=== PATIENT | male | born 1960 | race Caucasian/White ===

== ENCOUNTER 2019-01-20 11:26 | Inpatient (IN) ==
[~2019-01-20 11:26] MED LIST: *HR* Amiodarone 150 MG/3 ML VIAL IVPB ONE; *HR* Amiodarone Premix 360 MG/200 ML BAG IVC ONE; *HR* Norepinephrine 4 MG/4 ML VIAL IVC ONE; D5% in Water 250 ML IV BAG IV ONE
[2019-01-20] MEDS ORDERED: Amiodarone Premix 150 MG/100 ML BAG IVPB ONE (11:50)
[2019-01-20] MEDS ORDERED: 0.9 % Sodium Chloride 500 ML IVC ONE (11:58)
[2019-01-20] MEDS ORDERED: Isovue-370 500 ML BOTTLE IVP ONE (11:58)
[2019-01-20] MEDS ORDERED: Aspirin 81 MG TAB.CHEW PO ONE (11:58)
[2019-01-20] MEDS ORDERED: Amiodarone Premix 360 MG/200 ML BAG IVC ONE (11:59)
--- NOTE | 2019-01-20 12:16 | Emergency Department Note ---
Disposition Clinical Impression: V-tach Disposition: Admitted As Inpatient Condition: Fair Time of Disposition: 13:46 General Adult HPI - General Chief complaint: ED Chest Pain Stated complaint: CP Time Seen by Provider: 01/20/19 11:58 Source: patient Limitations: no limitations Nursing Notes Reviewed: Yes Vital Signs Reviewed: Yes - History of Present Illness HPI Narrative: Patient presenting to the emergency department with chest pain. Was directed added. Patient was found to be in V. tach. Monomorphic. Complaining of crushing chest pain. Does have a history of one stent placed and is on Eliquis for this. Patient reports shortness of breath associated with this. He denies any fevers or chills. Denies any cough or congestion. Denies any abdominal pain nausea vomiting. States that he is from out of town and is here for a reunion. No history of being in V. tach before. Pain Scale: 0 - Related Data Home Medications Medication Instructions Recorded Confirmed Apixaban [Eliquis] 5 mg PO BID 01/20/19 01/20/19 Esomeprazole Magnesium [Nexium] 40 mg PO BID 01/20/19 01/20/19 Exenatide Microspheres [Bydureon 2 mg SQ GU 01/20/19 01/20/19 Pen] Isosorbide MONOnitrate [Isosorbide 20 mg PO DAILY 01/20/19 01/20/19 Mononitrate] Lisinopril-HCTZ 10-12.5 [Prinzide 1 each PO DAILY 01/20/19 01/20/19 10-12.5] Metoprolol Succinate [Toprol Xl] 50 mg PO DAILY 01/20/19 01/20/19 Mometasone/Formoterol [Dulera 200 2 puff IH BID 01/20/19 01/20/19 Mcg/5 Mcg Inhaler] Oxycodone HCl/Acetaminophen 1 each PO TID 01/20/19 01/20/19 [Percocet 5-325 mg Tablet] Ranolazine [Ranexa] 1,000 mg PO BID 01/20/19 01/20/19 Simvastatin [Zocor] 20 mg PO HS 01/20/19 01/20/19 metFORMIN [Glucophage] 500 mg PO BIDWM 01/20/19 01/20/19 Allergies Allergy/AdvReac Type Severity Reaction Status Date / Time Penicillins AdvReac Rash Verified 01/20/19 12:10 All systems ED: reviewed and negative except as stated. Review of Systems: As Per HPI Constitutional: Denies: fever, chills Cardiovascular: Reports: chest pain Respiratory: Reports: dyspnea. Denies: cough Gastrointestinal: Denies: abdominal pain, nausea, vomiting, diarrhea Genitourinary: Denies: urgency, dysuria, frequency, hematuria Musculoskeletal: Denies: back pain Past Medical History - Past Medical History Attestation: Yes The following information was validated with the patient. Source: patient Medical history: Reports: COPD, diabetes, hypertension Psychiatric history: Reports: no psych history - Social History Smoking Status: Former smoker Smokeless Tobacco Status: No Alcohol use: Reports: none Drug use: Reports: none Physical Exam - General Limitations: no limitations General appearance: alert, in no apparent distress - Head Head exam: atraumatic, normocephalic, normal inspection - Eye Eye exam: Present: normal appearance, PERRL, EOMI - ENT ENT exam: normal exam, normal oropharynx, mucous membranes moist - Neck Neck exam: Present: normal inspection, full ROM, trachea midline - Chest Chest inspection: Present: normal inspection, symmetric chest wall rise - Respiratory Respiratory exam: Present: normal lung sounds bilaterally. Absent: respiratory distress, accessory muscle use - Cardiovascular Cardiovascular exam: Present: tachycardia, normal heart sounds - Abdominal Exam Abdominal exam: Present: soft, Non-Tender. Absent: tenderness, distention, gu arding, rebound, rigidity, organomegaly - Extremities Exam Extremities exam: Present: normal inspection, full ROM, normal capillary refill. Absent: tenderness, pedal edema - Neurological Exam Neurological exam: Present: alert, oriented X3 - Psychiatric Psychiatric exam: Present: normal affect, normal mood - Skin Skin exam: Present: warm, dry, intact, normal color Course Course Narrative: Patient and monomorphic V. tach. We did try 150 of amiodarone slow push with no resolution of this. Initially he was normotensive however his blood pressure did start to fall. Patient was sedated with 160 mg of propofol and cardioverted. He cardioverted successfully at 100 J. Patient was placed on a end-tidal CO2 monitor prior to the cardioversion. He did have an episode where his oxygen saturations decreased and his airway was open. We did assist his ventilations which quickly brought his oxygen saturation of 200%. Patient was easily aroused after the procedure. Stated in a normal sinus rhythm with no signs of acute ischemia. We did discuss this case with the water softener servicer on-call who is agreeable to admission at this time and states that he will possibly be cardiac catheterized tomorrow. After the cardioversion patient has no complaints currently. He is smiling and laughing. - Consultations Consultation #1: I spoke with Dr Donato rao interventional cardiology. He agrees with the plan that we have so far for amiodarone drip admission to the hospital. He states likely cardiac catheterization tomorrow. Time: 12:14 Consultation #2: Dr Castro accepted Pt in stable condition. Time: 12:16 Vital Signs Temperature 98.1 F 01/20/19 11:29 Pulse Rate 210 01/20/19 11:29 Respiratory Rate 22 01/20/19 11:29 Blood Pressure 134/76 01/20/19 11:29 O2 Sat by Pulse Oximetry 98 01/20/19 11:29 Temperature 98.1 F 01/20/19 11:29 Pulse Rate 58 01/20/19 13:25 Respiratory Rate 18 01/20/19 13:25 Blood Pressure 111/77 01/20/19 13:25 O2 Sat by Pulse Oximetry 98 01/20/19 13:25 Oxygen Delivery Oxygen Delivery Room Air Medical Decision Making - Medical Records Medical records reviewed: Yes I reviewed the patient's medical records. - Lab Data Lab results reviewed: Yes I reviewed the patient's lab results. Result diagrams: 01/20/19 11:42 01/20/19 11:42 Lab Results 01/20/19 01/20/19 01/20/19 Range/Units 11:42 11:42 11:42 WBC 8.7 (4.3-11.1) K/mcL RBC 5.14 (4.19-5.50) M/mcL Hgb 15.4 (12.9-16.9) g/dL Hct 46.1 (37.5-50.1) % MCV 89.7 (83.0-100.0) fL MCH 30.0 (28.0-33.3) pg MCHC 33.4 (31.6-35.5) g/dL RDW 13.1 (11.5-14.5) % Plt Count 214 (140-400) K/mcL MPV 10.7 (9.4-12.4) fL Immature Gran % 0.5 (0-4) % Seg Neutrophils % 70.5 % Lymphocytes % 19.8 % Monocytes % 7.0 % Eosinophils % 1.7 % Basophils % 0.5 % Neutrophils # 6.2 (1.6-8.9) K/mcL Lymphocytes # 1.7 (0.6-4.6) K/mcL Monocytes # 0.6 (0.0-1.3) K/mcL Eosinophils # 0.2 (0.0-0.6) K/mcL Basophils # 0.0 (0.0-0.2) K/mcL PT 11.7 (9.4-12.1) Seconds INR 1.0 APTT 35.3 (26.0-36.0) Seconds Sodium 135 L (136-145) mEq/L Potassium 5.1 (3.5-5.1) mEq/L Chloride 98 (98-107) mEq/L Carbon Dioxide 28 (23-29) mEq/L BUN 20 (8-23) mg/dL Creatinine 1.24 (0.70-1.30) mg/dL Est GFR ( Amer) > 60 (> 60) Est GFR (Non-Af Amer) 59 L (> 60) BUN/Creatinine Ratio 16 (6-26) Glucose 285 H (70-105) mg/dL Calculated Osmolality 293 (280-300) Calcium 8.9 (8.6-10.3) mg/dL Troponin I 0.07 H* (< 0.04) ng/mL B-Natriuretic Peptide (Less than 100) pg/mL 01/20/19 Range/Units 11:42 WBC (4.3-11.1) K/mcL RBC (4.19-5.50) M/mcL Hgb (12.9-16.9) g/dL Hct (37.5-50.1) % MCV (83.0-100.0) fL MCH (28.0-33.3) pg MCHC (31.6-35.5) g/dL RDW (11.5-14.5) % Plt Count (140-400) K/mcL MPV (9.4-12.4) fL Immature Gran % (0-4) % Seg Neutrophils % % Lymphocytes % % Monocytes % % Eosinophils % % Basophils % % Neutrophils # (1.6-8.9) K/mcL Lymphocytes # (0.6-4.6) K/mcL Monocytes # (0.0-1.3) K/mcL Eosinophils # (0.0-0.6) K/mcL Basophils # (0.0-0.2) K/mcL PT (9.4-12.1) Seconds INR APTT (26.0-36.0) Seconds Sodium (136-145) mEq/L Potassium (3.5-5.1) mEq/L Chloride (98-107) mEq/L Carbon Dioxide (23-29) mEq/L BUN (8-23) mg/dL Creatinine (0.70-1.30) mg/dL Est GFR ( Amer) (> 60) Est GFR (Non-Af Amer) (> 60) BUN/Creatinine Ratio (6-26) Glucose (70-105) mg/dL Calculated Osmolality (280-300) Calcium (8.6-10.3) mg/dL Troponin I (< 0.04) ng/mL B-Natriuretic Peptide 133 H (Less than 100) pg/mL - Radiology Data Radiology results reviewed: Yes I reviewed the patient's radiology results. Chest X-Ray 01/20/19 11:58 IMPRESSION: No acute process. D/ / Jabari Deshpande MD / Jabari Deshpande MD Interpreting Provider: Jabari Deshpande MD Chest CTA 01/20/19 11:59 IMPRESSION: No evidence of pulmonary embolism or acute pulmonary abnormality. D/ / Marc oA Hickman MD / Marco A Hickman MD Interpreting Provider: Marco A Hickman MD Critical Care Time Critical Care Time: Yes Total Critical Care Time: 35 Attestation: Critical care time was 35 minutes managing patient's V. tach. Attestation Statement - Attestation Attestation: Patient was seen with resident physician. I reviewed the history, physical, assessment and plan, and agree with the findings. I also personally evaluated this patient and had [id number] time with this patient. 58-year-old male presents to the emergency department with a chief complaint of chest pain. Patient says he has had chest pain since earlier today. Notes he is also been short of breath. Patient states he has had several long car trips recently. He has a history of cardiac disease with stent placement. He takes a blood thinner for that. Denies fevers or chills. Patient was ambulatory on arrival and provide a good history. Review of systems as above remainder negative. Physical exam vital signs Asians and V. tach heart rate of greater than 200. Temperatures normal blood pressure is normal. ENT unremarkable. Heart tachycardic regular rhythm. Lungs clear no wheezing or other abnormalities noted. Chest wall stable. Abdomen soft nontender. Extremities unremarkable no appreciable swelling. Neurologically intact moves all extremities no focal deficits. Skin no rashes. Psych normal. ED course. I with the patient being in the model more fit ventricular tachycardia, he was given a amiodarone while we were planning a cardioversion. 2 IVs were placed. Verbal consent was obtained. Pads were placed. Patient was consciously sedated using propofol. Patient was cardioverted with a biphasic 100 J dose. Cardioversion was successful. Patient returned to a normal sinus rhythm. There is no acute changes seen on that EKG. During recovery patient's became a little hypoxic. It was noted that his jaw was causing some mild obstruction we performed a jaw lift maneuver and bagged the patient slightly his pulse ox improved to 100% almost immediately. And he was observed until his mental status was improved and he had no residual airway issues. Initial troponin was negative. Other lab tests are largely unremarkable. We discussed with interventional cardiology recommended admission to hospitalist service with possible catheterization during his stay. We discussed the hospitalist agreed to accept the patient. ED procedure.I reviewed the patient's EKG as well as the resident physician interpretation and I agree with the findings. Please review resident note for detailed code information. I was present for the entirety of the patient's cardioversion and resuscitation. Critical care time for this patient was 35 minutes.
[2019-01-20 12:23] LABS: BUN/Creatinine Ratio 16 (6-26); Blood Urea Nitrogen 20 mg/dL (8-23); Calcium 8.9 mg/dL (8.6-10.3); Carbon Dioxide 28 mEq/L (23-29); Chloride 98 mEq/L (98-107); Glucose 285 mg/dL (70-105); Osmolality,Calculated 293 (280-300); Potassium 5.1 mEq/L (3.5-5.1); Sodium 135 mEq/L (136-145); eGFR For African Americans > 60 (> 60); eGFR For Non-African Americans 59 (> 60)
[2019-01-20 12:25] LABS: Basophils % 0.5 %; Eosinophils # 0.2 K/mcL (0.0-0.6); Eosinophils % 1.7 %; Hematocrit 46.1 % (37.5-50.1); Hemoglobin 15.4 g/dL (12.9-16.9); Immature Granulocytes % 0.5 % (0-4); Lymphocytes # 1.7 K/mcL (0.6-4.6); Lymphocytes % 19.8 %; Mean Corpuscular HGB Conc 33.4 g/dL (31.6-35.5); Mean Corpuscular Volume 89.7 fL (83.0-100.0); Mean Platelet Volume 10.7 fL (9.4-12.4); Monocytes # 0.6 K/mcL (0.0-1.3); Neutrophils # 6.2 K/mcL (1.6-8.9); Platelet Count 214 K/mcL (140-400); Red Blood Count 5.14 M/mcL (4.19-5.50); Red Cell Distribution Width 13.1 % (11.5-14.5); Segmented Neutrophils % 70.5 %; White Blood Count 8.7 K/mcL (4.3-11.1)
[2019-01-20 12:28] LABS: Troponin I 0.07 ng/mL (< 0.04)
[2019-01-20 12:42] LABS: Prothrombin Time 11.7 Seconds (9.4-12.1)
[2019-01-20 12:44] LABS: Activated Partial Thrombo Time 35.3 Seconds (26.0-36.0)
--- NOTE | 2019-01-20 13:47 | Internal Med History&Physical ---
Date of Encounter: 01/20/19 Time of Encounter: 13:47 Internal Medicine - H&P: HPI Chief complaint: CP History of present illness: Mr. Henson is a 58 year old male who presenting with crushing chest pain associated with SOP , on evaluation, he was found to be in Monomorphic V. tach. . The patient has history of [place] in 2001, S/P one stent placement, the patient currently is on chronic anticoagulation with Eliquis. The patient denies cough, congestion, nausea, vomiting, orthopnea, progressive worsening of lower extremity edema. The patient is not from [place] and he is visiting from out of town for family reunion and drove more than 14 hours to get here, the ER staff was able to cardiovert him to sinus rhythm, the patient was started on midodrine drip and was admitted for further evaluation and management. Cardiology was consulted by the ER staff and will see the patient in consult. Past Med Surg Social Fam HX - Past Medical History Medical history: COPD, diabetes, hypertension Additional medical history: CAD previous OK Psychiatric history: no psych history - Past Surgical History Additional surgical history: cardiac stent - Social History Smoking Status: Former smoker Smokeless Tobacco Status: No Alcohol use: none Drug use: none - Family History Mother History Unknown: Yes Living Status: Cause of : [place] Hx Family Cardiac Disorders: Yes (CAD) Hx Family Respiratory Disorders: Yes (Emphysema) Father History Unknown: Yes Living Status: Hx Family Cardiac Disorders: Yes (CAD) Hx Family Respiratory Disorders: Yes (Emphysema) Brother Hx Family Cardiac Disorders: Yes (multiple brothers and sisters with CAD) Internal Medicine - H&P: Meds Apixaban [Eliquis] 5 mg PO BID 01/20/19 [History] Esomeprazole Magnesium [Nexium] 40 mg PO BID 01/20/19 [History] Exenatide Microspheres [Bydureon Pen] 2 mg SQ GU 01/20/19 [History] Isosorbide MONOnitrate [Isosorbide Mononitrate] 20 mg PO DAILY 01/20/19 [History] Lisinopril-HCTZ 10-12.5 [Prinzide 10-12.5] 1 each PO DAILY 01/20/19 [History] Metoprolol Succinate [Toprol Xl] 50 mg PO DAILY 01/20/19 [History] Mometasone/Formoterol [Dulera 200 Mcg/5 Mcg Inhaler] 2 puff IH BID 01/20/19 [History] Oxycodone HCl/Acetaminophen [Percocet 5-325 mg Tablet] 1 each PO TID 01/20/19 [History] Ranolazine [Ranexa] 1,000 mg PO BID 01/20/19 [History] Simvastatin [Zocor] 20 mg PO HS 01/20/19 [History] metFORMIN [Glucophage] 500 mg PO BIDWM 01/20/19 [History] Amiodarone HCl 400 mg PO DAILY #30 tablet 01/23/19 [Rx] Aspirin [Lo-Dose Aspirin EC] 81 mg PO DAILY #30 tablet. 01/23/19 [Rx] LORazepam [Lorazepam] 2 mg PO DAILY PRN 10 Days #10 tablet 01/23/19 [Rx] Allergy/AdvReac Type Severity Reaction Status Date / Time Penicillins AdvReac Rash Verified 01/20/19 12:10 All Systems PM: A 10-system review of systems was performed and is negative for pertinent findings except as documented above in the HPI. - Constitutional Vitals: Temp Pulse Resp BP Pulse Ox 98.1 F 58 18 111/77 98 01/20/19 11:29 01/20/19 13:25 01/20/19 13:25 01/20/19 13:25 01/20/19 13:25 General appearance: Present: A&O X 3 Exam: ` - Head Head exam: Present: atraumatic, normocephalic - Neck Neck exam general surgery: Present: supple, trachea midline. Absent: lymp hadenopathy - Respiratory Respiratory exam: Present: CTAB. Absent: accessory muscle use, rales, rhonchi, wheezes - Cardiovascular Cardiovascular exam: Present: RRR, +S1, +S2. Absent: diastolic murmur, gallop, rubs, systolic murmur - Extremities Exam Extremities exam: Present: warm, radial pulses palpable and symmetrical. Absent: calf tenderness, cyanotic, pedal edema Internal Med - H&P Results - Labs CBC & Chem 7: 01/21/19 02:28 01/23/19 04:03 Labs: Short CBC 01/20/19 Range/Units 11:42 WBC 8.7 (4.3-11.1) K/mcL Hgb 15.4 (12.9-16.9) g/dL Hct 46.1 (37.5-50.1) % Plt Count 214 (140-400) K/mcL Neutrophils # 6.2 (1.6-8.9) K/mcL BMP 01/20/19 11:42 Sodium 135 L Potassium 5.1 Chloride 98 Carbon Dioxide 28 BUN 20 Creatinine 1.24 Glucose 285 H Calcium 8.9 Cardiac Enzymes 01/20/19 Range/Units 11:42 Troponin I 0.07 H* (< 0.04) ng/mL - Impressions ITS Impressions Chest X-Ray 01/20/19 11:58 IMPRESSION: No acute process. D/ / Jabari Deshpande MD / Jabari Deshpande MD Interpreting Provider: Jabari Deshpande MD Chest CTA 01/20/19 11:59 IMPRESSION: No evidence of pulmonary embolism or acute pulmonary abnormality. D/ / Marco A Hickman MD / Marco A Hickman MD Interpreting Provider: Marco A Hickman MD - Assessment and Plan (1) V-tach Status: Acute Assessment and plan: The patient was electrically cardioverted to sinus rhythm, amiodarone drip was started, cardiology was consulted for further evaluation and management. (2) Hypertension Status: Acute Assessment and plan: We will continue home medication continue to monitor blood pressure while inpatient and adjust regimen according Qualifiers: Qualified Code(s): I10 - Essential (primary) hypertension (3) Chronic coronary artery disease Status: Acute Assessment and plan: The patient s/p stent placement in 2001, on chronic anticoagulation with elequis that was recommenced by his cardiology. (4) Hyperlipidemia Status: Acute Assessment and plan: We will continue statin and obtain FLP Qualifiers: Qualified Code(s): E78.5 - Hyperlipidemia, unspecified (5) DVT prophylaxis Status: Acute Assessment and plan: on eliquis - Time Spent With Patient Total time spent is greater than 50% in coordination of care (as documented) at patient's floor/unit and/or counseling patient:
[2019-01-20] MEDS ORDERED: EXENATIDE SQ SCH (14:30)
[2019-01-20] MEDS ORDERED: Acetaminophen 325 MG TABLET PO PRN (14:31)
[2019-01-20] MEDS ORDERED: Naloxone 0.4 MG/ML INJ IVP PRN (14:31)
[2019-01-20] MEDS ORDERED: Ondansetron 4 MG/2 ML VIAL IVP PRN (14:31)
[2019-01-20] MEDS ORDERED: *HR* HYDROcodone/Acet 5/325 mg TABLET PO PRN (14:31)
[2019-01-20] MEDS ORDERED: D5% in Water 1,000 ML IVC PRN (15:04)
[2019-01-20] MEDS ORDERED: Dextrose Gel 15 GM/37.5 ML TUBE PO PRN ×2 (15:04)
[2019-01-20] MEDS ORDERED: *HR* Dextrose 50 % in Water (Syg) 50 ML SYRINGE IVP PRN (15:04)
[2019-01-20] MEDS: *HR* OxyCODONE/APAP 5/325 TABLET PO SCH ×2 (15:37→21:00)
[2019-01-20] MEDS ORDERED: Insulin LISPRO 300 UNITS/3 ML VIAL SQ SCH ×2 (16:30→21:00)
[2019-01-20] MEDS: Amiodarone Premix 360 MG/200 ML BAG IVC SCH (17:30)
[2019-01-20 18:07] LABS: Bilirubin,Urine Negative (Negative); Blood,Urine Negative (Negative); Clarity,Urine Clear (Clear); Color,Urine Yellow (Yellow); Glucose,Urine (UA) 100 mg/dL (Normal); Ketones,Urine Negative (Negative); Leukocyte Esterase,Urine Negative (Negative); Nitrite,Urine Negative (Negative); PH,Urine 5.5 pH Units (5.0-8.0); Protein,Urine Negative (Neg-Trace); Specific Gravity,Urine > 1.030 (1.010-1.025); Urobilinogen,Urine Normal (Normal)
[2019-01-20 18:11] LABS: Amphetamine Screen,Urine Negative ng/mL (Cutoff=1000); Barbiturate Screen,Urine Negative ng/mL (Cutoff=200); Benzodiazepines Screen,Urine Negative ng/mL (Cutoff=200); Cannabinoid Screen,Urine Negative ng/mL (Cutoff = 50); Cocaine Screen,Urine Negative ng/mL (Cutoff= 300); Opiate Screen,Urine Positive ng/mL (Cutoff=300); Phencyclidine Screen,Urine Negative ng/mL (Cutoff=25)
[2019-01-20] MEDS: Budesonide/Formoterol 160/4.5 1 PUFF INH IH SCH (20:04)
[2019-01-20] MEDS: Apixaban 5 MG TABLET PO SCH (21:01)
[2019-01-20] MEDS: Ranolazine 500 MG TAB.ER.12H PO SCH (21:01)
[2019-01-21] MEDS ORDERED: D5% in Water 1,000 ML IVC PRN ×2 (00:49→00:51)
[2019-01-21] MEDS ORDERED: Dextrose Gel 15 GM/37.5 ML TUBE PO PRN ×4 (00:49→00:51)
[2019-01-21] MEDS ORDERED: *HR* Dextrose 50 % in Water (Syg) 50 ML SYRINGE IVP PRN ×2 (00:49→00:51)
[2019-01-21 02:39] LABS: Basophils % 0.6 %; Eosinophils # 0.2 K/mcL (0.0-0.6); Eosinophils % 3.6 %; Hematocrit 42.1 % (37.5-50.1); Immature Granulocytes % 0.5 % (0-4); Lymphocytes # 2.2 K/mcL (0.6-4.6); Lymphocytes % 34.2 %; Mean Corpuscular HGB Conc 33.3 g/dL (31.6-35.5); Mean Corpuscular Volume 90.3 fL (83.0-100.0); Mean Platelet Volume 10.2 fL (9.4-12.4); Monocytes # 0.6 K/mcL (0.0-1.3); Monocytes % 9.1 %; Neutrophils # 3.4 K/mcL (1.6-8.9); Platelet Count 152 K/mcL (140-400); Red Blood Count 4.66 M/mcL (4.19-5.50); Red Cell Distribution Width 13.2 % (11.5-14.5); White Blood Count 6.5 K/mcL (4.3-11.1)
[2019-01-21 02:46] LABS: INR 1.1; Prothrombin Time 12.5 Seconds (9.4-12.1)
[2019-01-21 02:49] LABS: Activated Partial Thrombo Time 34.2 Seconds (26.0-36.0)
[2019-01-21 03:01] LABS: Alanine Aminotransferase 17 Units/L (7-52); Albumin/Globulin Ratio 2.1 (1.1-2.2); Alkaline Phosphatase 42 Units/L (34-104); Aspartate Amino Transferase 14 Units/L (13-39); BUN/Creatinine Ratio 17 (6-26); Bilirubin,Total 0.4 mg/dL (0.3-1.0); Blood Urea Nitrogen 17 mg/dL (8-23); Calcium 8.5 mg/dL (8.6-10.3); Carbon Dioxide 28 mEq/L (23-29); Chloride 101 mEq/L (98-107); Chol/HDL Ratio 4.8 (0-4.9); Cholesterol 152 mg/dL (< 200); Globulin 1.9 g/dL (2.4-3.5); Glucose 189 mg/dL (70-105); HDL Cholesterol 32 mg/dL (40-59); LDL Cholesterol,Calculated 69 mg/dL (0-99); Osmolality,Calculated 287 (280-300); Phosphorous 3.5 mg/dL (2.7-4.5); Potassium 3.9 mEq/L (3.5-5.1); Sodium 135 mEq/L (136-145); Total Protein 5.9 g/dL (6.4-8.9); Triglycerides 255 mg/dL (< 150); eGFR For African Americans > 60 (> 60); eGFR For Non-African Americans > 60 (> 60)
[2019-01-21 03:10] LABS: Troponin I 0.63 ng/mL (< 0.04)
[2019-01-21] MEDS: Amiodarone Premix 360 MG/200 ML BAG IVC SCH ×2 (04:55→18:57)
[2019-01-21] MEDS: Insulin LISPRO 300 UNITS/3 ML VIAL SQ SCH ×3 (05:36→16:36)
[2019-01-21] MEDS: Budesonide/Formoterol 160/4.5 1 PUFF INH IH SCH ×2 (08:10→23:01)
--- NOTE | 2019-01-21 08:12 | Internal Med Progress Note ---
Hospitalist Progress Note - Encounter Date of Encounter: 01/21/19 Time of Encounter: 10:11 - Subjective Interval History: Patient seen and examined at bedside. His family is present and he is resting comfortably. He denies any chest pain, shortness of breath, heart palpitations. He has no other complaints. He is awaiting for the globe mounter evaluation. - Exam Vitals: Temp Pulse Resp BP Pulse Ox 97.7 F 51 16 129/77 96 01/21/19 07:38 01/21/19 07:38 01/21/19 07:38 01/21/19 07:38 01/21/19 07:38 Exam: Gen.: Vitals noted. No acute distress. AAOx3 HEENT: oropharynx clear, Normocephalic, atraumatic Cardiac: RRR, no murmur, +S1/S2 Pulmonary: CTA bilaterally, no wheezes, rales or rhonchi, equal chest expansion Abdomen: soft, nontender, Bowel sounds noted, no guarding MSK: no joint swelling noted Extremities: no BLE edema, nontender calf, no cyanosis or clubbing Neuro: A&Ox3, moves all extremities, no focal deficits Psych: Appropriate mood and behavior - Assessment and Plan (1) V-tach Current Visit: Yes Status: Acute Assessment and Plan: Ventricular tachycardia demonstrated on EKG -heart rate stable and controlled, hemodynamically stable -EKG showing HR 209, monomorphic ventricular tachycardia -troponin 0.07 > 0.35 > 0.85 > 0.63 -potassium 3.9 -magnesium 2.0 -hx NE and PCI in 2001 -Cardiology taken for left heart catheterization today -cardiology following -plans for defibrillator placement tomorrow -NPO midnight -continue home eliquis, patient states he takes it this may be for atrial fibrillation however he is not very certain. awaiting medical records. -continue monitor electrolytes and supplement as needed (2) NSTEMI (non-ST elevated myocardial infarction) Current Visit: Yes Status: Acute Assessment and Plan: NSTEMI complaining of chest pain -PMH CAD, NE 2001, HTN -risk factors with family history of cardiac disease -patient with typical chest pain -reports being compliant with medications -troponin 0.07 > 0.35 > 0.85 > 0.63 -EKG showing HR 209, monomorphic ventricular tachycardia -lipid panel with triglycerides 255, LDL 69, HDL 32 -TTE showing EF 50%, moderate left ventricular diastolic dysfunction, mild mitral regurgitation. -patient denies chest pain, shortness of breath, palpitations Plan -continue amiodarone drip -cardiology consulted and will take patient for left heart catheterization today -hold eliquis until after procedure -continue home metoprolol, lisinopril/hctz, simvastatin, aspirin, imdur (3) Hypertension Current Visit: Yes Status: Acute Assessment and Plan: history of HTN taking lisinopril/hctz, metoprolol -blood pressure controlled -continue home medication (4) Chronic coronary artery disease Current Visit: Yes Status: Acute Assessment and Plan: History of CAD, [place] in 2001 with PCI. No intervention. -Continue aspirin, (5) Hyperlipidemia Current Visit: Yes Status: Acute Assessment and Plan: History of hyperlipidemia taking simvastatin -lipid panel with triglycerides 255, LDL 69, HDL 32 -continue home simvastatin (6) DVT prophylaxis Current Visit: Yes Status: Acute Assessment and Plan: on eliquis - Time Spent with Patient Total time spent is greater than 50% in coordination of care (as documented) at patient's floor/unit and/or counseling patient: Internal Medicine: Result - Labs CBC & Chem 7: 01/21/19 02:28 01/21/19 02:28 Labs: Short CBC 01/20/19 01/21/19 Range/Units 11:42 02:28 WBC 8.7 6.5 (4.3-11.1) K/mcL Hgb 15.4 14.0 (12.9-16.9) g/dL Hct 46.1 42.1 (37.5-50.1) % Plt Count 214 152 (140-400) K/mcL Neutrophils # 6.2 3.4 (1.6-8.9) K/mcL BMP 01/20/19 01/21/19 11:42 02:28 Sodium 135 L 135 L Potassium 5.1 3.9 Chloride 98 101 Carbon Dioxide 28 28 BUN 20 17 Creatinine 1.24 0.99 Glucose 285 H 189 H Calcium 8.9 8.5 L Cardiac Enzymes 01/20/19 01/20/19 01/20/19 Range/Units 11:42 14:46 20:31 Troponin I 0.07 H* 0.35 H* 0.84 H* (< 0.04) ng/mL 01/21/19 Range/Units 02:28 Troponin I 0.63 H* (< 0.04) ng/mL Liver Function 01/21/19 Range/Units 02:28 Total Bilirubin 0.4 (0.3-1.0) mg/dL AST 14 (13-39) Units/L ALT 17 (7-52) Units/L Alkaline Phosphatase 42 (34-104) Units/L Albumin 4.0 (3.5-5.7) g/dL Urine 01/20/19 Range/Units 17:50 Urine Color Yellow (Yellow) Urine Clarity Clear (Clear) Urine pH 5.5 (5.0-8.0) pH Units Ur Specific [place] > 1.030 H (1.010-1.025) Urine Protein Negative (Neg-Trace) mg/dL Urine Glucose (UA) 100 H (Normal) mg/dL - ABG Interpretation ABG results: PT/INR, D-dimer PT 12.5 Seconds (9.4-12.1) H 01/21/19 02:28 - Impressions Impressions Chest X-Ray 01/20/19 11:58 IMPRESSION: No acute process. D/ / Jabari Deshpande MD / Jabari Deshpande MD Interpreting Provider: Jabari Deshpande MD Chest CTA 01/20/19 11:59 IMPRESSION: No evidence of pulmonary embolism or acute pulmonary abnormality. D/ / Marco A Hickman MD / Marco A Hickman MD Interpreting Provider: Marco A Hickman MD Consult Discharge Plan - Plan Instructions: Implantable Cardioverter Defibrillator (DC) Referrals: may gibson [Other] - 01/30/19 8:45 am (3) Hypertension Qualifiers: Qualified Code(s): I10 - Essential (primary) hypertension
[2019-01-21] MEDS: Apixaban 5 MG TABLET PO SCH (08:27)
[2019-01-21] MEDS: Metoprolol XL (24 HR) Succ 50 MG TAB.ER.24H PO SCH (08:38)
[2019-01-21] MEDS: Ranolazine 500 MG TAB.ER.12H PO SCH ×2 (08:39→21:36)
[2019-01-21] MEDS: Isosorbide MONOnitrate (24 HR) 30 MG TAB.ER.24H PO SCH (08:39)
[2019-01-21] MEDS: *HR* OxyCODONE/APAP 5/325 TABLET PO SCH ×3 (08:39→21:35)
--- NOTE | 2019-01-21 10:46 | Cardiology Consult Note ---
Date of Encounter: 01/21/19 Time of Encounter: 08:30 Assessment and Plan (1) V-tach Current Visit: Yes Status: Acute Per cardiology: -ECG with VT, was defibrillated in ER. -ON amiodarone drip. -No events overnight. -K, Mg within normal limits. -TTE pending. -Hx CAD, reports was "shocked" with his ME in 2001. -On BB. -Recommend LHC, risks versus benefits of LHC explained to patient, who states understanding and agreeable to proceed. Of note, patient had eliquis at 2100 last night. Discussed with mara Cheema to proceed, plan for radial access. -Keep K>4 and Mg >2 -Continue BB and amiodarone. -Will obtain previous cardiology records. -Will consult EP. (2) NSTEMI (non-ST elevated myocardial infarction) Current Visit: Yes Status: Acute Per cardiology: -Troponins 0.07, 0.35, 0.84, 0.63. -Admitted with chest pain, VT. -Denies current chest pain. -Not on heparin drip due to patient was on eliquis. ON BB, statin. -TTE pending. -Recommend LHC as above. -Will start ASA. (3) Arrhythmia Current Visit: Yes Status: Chronic Per cardiology: - reports "arrythmia" is the reason he is on eliquis. Presume a.fib. -Currently SR, HR controlled. -On BB. -Will obtain previous cardiology records. Qualifiers: Arrhythmia type: unspecified cardiac arrhythmia Qualified Code(s): I49.9 - Cardiac arrhythmia, unspecified Discussion w patient/family: The assessment and plan as outlined above was discussed with the patient and/or family members who expressed understanding and agreement. All questions were answered. Thank you for involving us in the care of your patient. Please call with any questions. Discussed and reviewed with . History of Present Illness Consult date: 01/20/19 Requesting physician: Rhonda Thompson Consult reason: VT Chief complaint: chest pain History of present illness: Mr. Henson is a 58 year old male with a relevant past medical history of ME, CAD s/p PCI, "arrythmia" presumably a.fib, COPD, HTN, DM, who presented to [facility] with complaints of chest pain. Patient states he lives about 4 hours away and is in town to go to a family reunion. Patient states he woke up yesterday morning and was walking around the hotel room and he had sudden onset of chest pain. Patient states it felt like a pressure across his chest. Reports associated nausea, diaphoresis, lightheadedness. Patient states he took 2 of his nitro with no relief. However, patient does report that his nitro were . Patient states he then went to an urgent care where they gave him 4 baby ASA and recommended he come to ER (reports they did not do an ECG). Patient states he then came to ER. Upon arrival to ER patient was noted to be in VT on ECG. Patient was given IV amio bolus, however patient then started to become unstable, and he was defibrillated. Patient states after defibrillation, symptoms resolved. Patient was placed on amiodarone drip and was admitted. Patient denies current symptoms. States he now feels back to his baseline. Past Med Surg Social Fam HX - Past Medical History Attestation: Yes The following information was validated with the patient. Source: patient, obtained from family Medical history: COPD, coronary artery disease, diabetes, hypertension, myocardial infarction Additional medical history: CAD previous ME Psychiatric history: no psych history - Past Surgical History Additional surgical history: cardiac stent Bilat shoulders, sinus - Social History Smoking Status: Former smoker Smokeless Tobacco Status: No Alcohol use: none Drug use: none Medications and Allergies Apixaban [Eliquis] 5 mg PO BID 01/20/19 [History] Esomeprazole Magnesium [Nexium] 40 mg PO BID 01/20/19 [History] Exenatide Microspheres [Bydureon Pen] 2 mg SQ GU 01/20/19 [History] Isosorbide MONOnitrate [Isosorbide Mononitrate] 20 mg PO DAILY 01/20/19 [History] Lisinopril-HCTZ 10-12.5 [Prinzide 10-12.5] 1 each PO DAILY 01/20/19 [History] Metoprolol Succinate [Toprol Xl] 50 mg PO DAILY 01/20/19 [History] Mometasone/Formoterol [Dulera 200 Mcg/5 Mcg Inhaler] 2 puff IH BID 01/20/19 [History] Oxycodone HCl/Acetaminophen [Percocet 5-325 mg Tablet] 1 each PO TID 01/20/19 [History] Ranolazine [Ranexa] 1,000 mg PO BID 01/20/19 [History] Simvastatin [Zocor] 20 mg PO HS 01/20/19 [History] metFORMIN [Glucophage] 500 mg PO BIDWM 01/20/19 [History] Allergy/AdvReac Type Severity Reaction Status Date / Time Penicillins AdvReac Rash Verified 01/20/19 12:10 All Systems Review: The remainder of the systems were reviewed and are negative - Cardiovascular Cardiovascular: as per HPI, chest pain at rest, chest pain with exertion, diaphoresis, dyspnea on exertion, lightheadedness Physical Examination Vital Signs, Last 4 Hours Temp Pulse Resp BP Pulse Ox 01/21/19 07:38 97.7 F 51 16 129/77 96 General: Conversant, No Apparent Distress HEENT: Atraumatic, Normocephaly, Mucus Membranes Moist Neck: No JVD, Normal carotid pulses Cardiac: Reg Rate and Rhythm, Normal S1 and S2, No Murmur Lungs: Normal Breath Sounds, No Wheeze, Rales, Rhonchi Neuro: Alert and responsive, No focal deficits noted Abdomen: Soft, Non-Tender Skin: No rashes noted on visualized skin Musculoskeletal: No Chest Wall Tenderness Extremities: No Clubbing, No Cyanosis, No Edema, Normal Pulses Results 01/21/19 02:28 01/21/19 02:28 Lab Results Impressions Chest X-Ray 01/20/19 11:58 IMPRESSION: No acute process. D/ / Jabari Deshpande MD / Jabari Deshpande MD Interpreting Provider: Jabari Deshpande MD Chest CTA 01/20/19 11:59 IMPRESSION: No evidence of pulmonary embolism or acute pulmonary abnormality. D/ / Marco A Hickman MD / Marco A Hickman MD Interpreting Provider: Marco A Hickman MD Active Medications Acetaminophen (Tylenol) 650 mg PO Q6HR PRN PRN Reason: Mild Pain/Fever Stop: 07/22/19 14:32 Hydrocodone Bitart/Acetaminophen ([place] 5-325 Mg) 1 tab PO Q6HR PRN PRN Reason: Moderate Pain Stop: 07/22/19 14:32 Last Admin: 01/20/19 19:24 Dose: 1 tab Documented by: Apixaban (Eliquis) 5 mg PO BID [facility] Stop: 07/22/19 21:01 Last Admin: 01/21/19 08:27 Dose: Not Given Documented by: Budesonide/Formoterol Fumarate (Symbicort) 2 puff IH BIDR [facility] Stop: 07/22/19 22:01 Last Admin: 01/21/19 08:10 Dose: 2 puff Documented by: Dextrose/Water (Dextrose 50% (Syg)) 25 ml IVP AD PRN PRN Reason: Hypoglycemia Stop: 07/22/19 15:05 Glucagon (Glucagen) 1 mg IM ONCE PRN PRN Reason: Hypoglycemia Stop: 07/22/19 15:05 Glucose (Gluctose) 15 gm PO ONCE PRN PRN Reason: Hypoglycemia Stop: 07/22/19 15:05 Glucose (Gluctose) 30 gm PO ONCE PRN PRN Reason: Hypoglycemia Stop: 07/22/19 15:05 Lisinopril/HCTZ (Prinzide 10-12.5) 1 each PO DAILY [facility] Stop: 07/23/19 09:01 Last Admin: 01/21/19 08:39 Dose: 1 each Documented by: Amiodarone HCl/Dextrose (Amiodarone Drip Premix 360mg/200ml) 360 mg in 200 mls @ 16.667 mls/hr IVC CONT DANIELA Stop: 07/22/19 18:01 Last Admin: 01/21/19 04:55 Dose: 0.5 mg/min, 16.7 mls/hr Documented by: Dextrose (Dextrose 5%) 1,000 mls @ 100 mls/hr IVC .Q10H PRN PRN Reason: HYPOGLYCEMIA Stop: 07/22/19 15:05 Insulin Human Lispro (Humalog) 0 units SQ Q6HR [facility]; Protocol Stop: 07/23/19 06:01 Last Admin: 01/21/19 05:36 Dose: 2 units Documented by: Isosorbide Mononitrate (Imdur) 30 mg PO DAILY [facility] Stop: 07/23/19 09:01 Last Admin: 01/21/19 08:39 Dose: 30 mg Documented by: Metoprolol Succinate (Toprol Xl) 50 mg PO DAILY [facility] Stop: 07/23/19 09:01 Last Admin: 01/21/19 08:38 Dose: Not Given Documented by: Naloxone HCl (Narcan) 0.4 mg IVP Q2MPRN PRN PRN Reason: SEE COMMENTS Stop: 07/22/19 14:32 Omeprazole (Prilosec) 40 mg PO BID [facility] Stop: 07/22/19 21:01 Last Admin: 01/21/19 08:39 Dose: 40 mg Documented by: Ondansetron HCl (Zofran) 4 mg IVP Q8HR PRN PRN Reason: Nausea And Vomiting Stop: 07/22/19 14:32 Oxycodone/Acetaminophen (Percocet 5/325) 1 each PO TID [facility] Stop: 07/22/19 15:01 Last Admin: 01/21/19 08:39 Dose: 1 each Documented by: Ranolazine (Ranexa) 1,000 mg PO BID [facility] Stop: 07/22/19 21:01 Last Admin: 01/21/19 08:39 Dose: 1,000 mg Documented by: Simvastatin (Zocor) 20 mg PO [facility]; Protocol Stop: 07/22/19 21:01 Last Admin: 01/20/19 21:00 Dose: 20 mg Documented by: Laboratory Tests 01/20/19 01/20/19 01/20/19 11:42 14:46 20:31 Hgb Potassium Creatinine Magnesium Troponin I 0.07 H* 0.35 H* 0.84 H* 01/21/19 01/21/19 02:28 02:28 Hgb 14.0 Potassium 3.9 Creatinine 0.99 Magnesium 2.0 Troponin I 0.63 H* - Imaging and Cardiology Chest Xray: report reviewed Echo: pending - EKG Interpretation EKG results cardiology: personally reviewed (ECG with ventricular tachycardia, HR 209.), other (Telemetry reviewed with average HR previous 12 hours noted to be 51, SB. PVCs, couplets, one triplet noted, PACs noted.) Consult Discharge Plan - Plan Referrals: may gibson [Other]
[2019-01-21] MEDS ORDERED: ISOVUE-370 200 ML INFUS..BTL ONE (12:28)
[2019-01-21] MEDS ORDERED: *HR* Heparin 10,000 UNIT/10 ML VIAL ONE (12:28)
[2019-01-21] MEDS ORDERED: 0.9 % Sodium Chloride 1,000 ML ONE ×2 (12:28→12:32)
[2019-01-21] MEDS ORDERED: Heparin 1,000 UNITS/500 mL 500 ML ONE (12:28)
[2019-01-21] MEDS ORDERED: Nitroglycerin 1,000 MCG/10 ML VIAL IV ONE (12:28)
--- NOTE | 2019-01-21 12:34 | Electrophysiology Consult Note ---
<Sena King - Last Filed: 01/21/19 12:38> Date of Encounter: 01/21/19 Time of Encounter: 12:00 Assessment and Plan (1) V-tach Status: Acute Patient presented with ACS symptoms; peak troponin 0.84 ECG upon arrival demonstrated monomorphic VT, was given 150 mg Amiodarone bolus in ED, became unstable and was then defibrillated x1 to NSR. Patient reports chest pain symptoms resolved after defibrillation. Reports similar presentation in 2001, DC at that time with subsequent stent. K 5.1 upon presentation, Mg 2.0, TSH normal. On amiodarone gtt per protocol. No recurrent VT noted overnight. Continue gtt for now. TTE 01/21/19: LVEF 50%, moderate LVDD, normal RV structure and function, mild MR, no PH, normal wall motion. LHC pending. Will await results of LHC to make further recommendations. Will further discuss and review with Dr. Jet Orantes. (2) NSTEMI (non-ST elevated myocardial infarction) Status: Acute See Cardio note for full recommendations. Await LHC. Discussion w patient/family: The assessment and plan as outlined above was discussed with the patient and/or family members who expressed understanding and agreement. All questions were answered. Thank you for involving us in the care of your patient. Please call with any questions. The patient will be discussed and reviewed with Dr. Jet Orantes; changes to be made accordingly. History of Present Illness Consult date: 01/21/19 Requesting physician: Elisha Da Silva Consult reason: Monomorphic VT Chief complaint: Chest pain History of present illness: Mr. Henson is a 58 year old male with PMHx DC, CAD s/p PCI, "arrhythmia" , COPD, HTN, DM, who presented to [facility] with complaints of chest pain. He lives about 4 hours away and is in town to go to a family reunion. He reports he woke up yestefday morning when he developed sudden onset of chest pain while walking; pain described as pressure like with associated nausea, diaphoresis, lightheadedness. Patient states he took 2 of his nitro with no relief, of note NTG tabs were . He then went to where x4 baby aspirins were administered and he was recommended to go to the ED. Upon arrival to ED, ECG showed monomorphic VT--he was given 150 mg bolus of amiodarone, became unstable and then was defibrillated. Patient states after defibrillation, symptoms resolved. Patient was placed on amiodarone drip and was admitted. He reports similar episode in 2001, endured DC and had to be "shocked" as well. No symptoms upon exam today. C pending. Past Med Surg Social Fam HX - Past Medical History Attestation: Yes The following information was validated with the patient. Source: patient Medical history: COPD, coronary artery disease, diabetes, hypertension, myocardial infarction Additional medical history: CAD previous DC Psychiatric history: no psych history - Past Surgical History Additional surgical history: cardiac stent Bilat shoulders, sinus - Social History Smoking Status: Former smoker Smokeless Tobacco Status: No Alcohol use: none Drug use: none - Family History Mother Living Status: Cause of : DC Hx Family Cardiac Disorders: Yes (CAD) Hx Family Respiratory Disorders: Yes (Emphysema) Father Living Status: Hx Family Cardiac Disorders: Yes (CAD) Hx Family Respiratory Disorders: Yes (Emphysema) Brother Hx Family Cardiac Disorders: Yes (multiple brothers and sisters with CAD) Medications and Allergies Apixaban [Eliquis] 5 mg PO BID 01/20/19 [History] Esomeprazole Magnesium [Nexium] 40 mg PO BID 01/20/19 [History] Exenatide Microspheres [Bydureon Pen] 2 mg SQ GU 01/20/19 [History] Isosorbide MONOnitrate [Isosorbide Mononitrate] 20 mg PO DAILY 01/20/19 [History] Lisinopril-HCTZ 10-12.5 [Prinzide 10-12.5] 1 each PO DAILY 01/20/19 [History] Metoprolol Succinate [Toprol Xl] 50 mg PO DAILY 01/20/19 [History] Mometasone/Formoterol [Dulera 200 Mcg/5 Mcg Inhaler] 2 puff IH BID 01/20/19 [History] Oxycodone HCl/Acetaminophen [Percocet 5-325 mg Tablet] 1 each PO TID 01/20/19 [History] Ranolazine [Ranexa] 1,000 mg PO BID 01/20/19 [History] Simvastatin [Zocor] 20 mg PO HS 01/20/19 [History] metFORMIN [Glucophage] 500 mg PO BIDWM 01/20/19 [History] Amiodarone HCl 400 mg PO DAILY #30 tablet 01/23/19 [Rx] Aspirin [Lo-Dose Aspirin EC] 81 mg PO DAILY #30 tablet. 01/23/19 [Rx] LORazepam [Lorazepam] 2 mg PO DAILY PRN 10 Days #10 tablet 01/23/19 [Rx] Allergy/AdvReac Type Severity Reaction Status Date / Time Penicillins AdvReac Rash Verified 01/20/19 12:10 All Systems Review: The remainder of the systems were reviewed and are negative - Cardiovascular Cardiovascular: as per HPI Physical Examination Vital Signs, Last 4 Hours Temp Pulse Resp BP Pulse Ox 01/21/19 11:31 97.8 F 54 17 100/54 96 01/21/19 08:30 53 18 94 General: Conversant, No Apparent Distress HEENT: Atraumatic, Normocephaly, Mucus Membranes Moist Neck: No JVD, Normal carotid pulses Cardiac: Reg Rate and Rhythm, Normal S1 and S2, No Murmur Lungs: Normal Breath Sounds, No Wheeze, Rales, Rhonchi Neuro: Alert and responsive, No focal deficits noted Abdomen: Soft, Non-Tender Skin: No rashes noted on visualized skin Musculoskeletal: No Chest Wall Tenderness Extremities: No Clubbing, No Cyanosis, No Edema, Normal Pulses Results 01/21/19 02:28 01/21/19 02:28 Lab Results 01/20/19 01/20/19 01/20/19 11:42 11:42 11:42 WBC Hgb Hct Plt Count INR 1.0 APTT 35.3 Sodium Potassium Chloride Carbon Dioxide BUN Creatinine Glucose Calcium Magnesium Total Bilirubin AST ALT Alkaline Phosphatase Troponin I 0.07 H* B-Natriuretic Peptide 133 H 01/20/19 01/20/19 01/21/19 14:46 20:31 02:28 WBC 6.5 Hgb 14.0 Hct 42.1 Plt Count 152 INR APTT Sodium Potassium Chloride Carbon Dioxide BUN Creatinine Glucose Calcium Magnesium Total Bilirubin AST ALT Alkaline Phosphatase Troponin I 0.35 H* 0.84 H* B-Natriuretic Peptide 01/21/19 01/21/19 02:28 02:28 WBC Hgb Hct Plt Count INR 1.1 APTT 34.2 Sodium 135 L Potassium 3.9 Chloride 101 Carbon Dioxide 28 BUN 17 Creatinine 0.99 Glucose 189 H Calcium 8.5 L Magnesium 2.0 Total Bilirubin 0.4 AST 14 ALT 17 Alkaline Phosphatase 42 Troponin I 0.63 H* B-Natriuretic Peptide Active Medications Acetaminophen (Tylenol) 650 mg PO Q6HR PRN PRN Reason: Mild Pain/Fever Stop: 07/22/19 14:32 Hydrocodone Bitart/Acetaminophen ([place] 5-325 Mg) 1 tab PO Q6HR PRN PRN Reason: Moderate Pain Stop: 07/22/19 14:32 Last Admin: 01/20/19 19:24 Dose: 1 tab Documented by: Apixaban (Eliquis) 5 mg PO BID [facility] Stop: 07/22/19 21:01 Last Admin: 01/21/19 08:27 Dose: Not Given Documented by: Aspirin (Aspirin Ec) 81 mg PO DAILY [facility] Stop: 07/23/19 11:01 Budesonide/Formoterol Fumarate (Symbicort) 2 puff IH BIDR [facility] Stop: 07/22/19 22:01 Last Admin: 01/21/19 08:10 Dose: 2 puff Documented by: Dextrose/Water (Dextrose 50% (Syg)) 25 ml IVP AD PRN PRN Reason: Hypoglycemia Stop: 07/22/19 15:05 Glucagon (Glucagen) 1 mg IM ONCE PRN PRN Reason: Hypoglycemia Stop: 07/22/19 15:05 Glucose (Gluctose) 15 gm PO ONCE PRN PRN Reason: Hypoglycemia Stop: 07/22/19 15:05 Glucose (Gluctose) 30 gm PO ONCE PRN PRN Reason: Hypoglycemia Stop: 07/22/19 15:05 Lisinopril/HCTZ (Prinzide 10-12.5) 1 each PO DAILY [facility] Stop: 07/23/19 09:01 Last Admin: 01/21/19 08:39 Dose: 1 each Documented by: Amiodarone HCl/Dextrose (Amiodarone Drip Premix 360mg/200ml) 360 mg in 200 mls @ 16.667 mls/hr IVC CONT DANIELA Stop: 07/22/19 18:01 Last Admin: 01/21/19 04:55 Dose: 0.5 mg/min, 16.7 mls/hr Documented by: Dextrose (Dextrose 5%) 1,000 mls @ 100 mls/hr IVC .Q10H PRN PRN Reason: HYPOGLYCEMIA Stop: 07/22/19 15:05 Insulin Human Lispro (Humalog) 0 units SQ Q6HR [facility]; Protocol Stop: 07/23/19 06:01 Last Admin: 01/21/19 05:36 Dose: 2 units Documented by: Isosorbide Mononitrate (Imdur) 30 mg PO DAILY [facility] Stop: 07/23/19 09:01 Last Admin: 01/21/19 08:39 Dose: 30 mg Documented by: Metoprolol Succinate (Toprol Xl) 50 mg PO DAILY [facility] Stop: 07/23/19 09:01 Last Admin: 01/21/19 08:38 Dose: Not Given Documented by: Naloxone HCl (Narcan) 0.4 mg IVP Q2MPRN PRN PRN Reason: SEE COMMENTS Stop: 07/22/19 14:32 Omeprazole (Prilosec) 40 mg PO BID [facility] Stop: 07/22/19 21:01 Last Admin: 01/21/19 08:39 Dose: 40 mg Documented by: Ondansetron HCl (Zofran) 4 mg IVP Q8HR PRN PRN Reason: Nausea And Vomiting Stop: 07/22/19 14:32 Oxycodone/Acetaminophen (Percocet 5/325) 1 each PO TID [facility] Stop: 07/22/19 15:01 Last Admin: 01/21/19 08:39 Dose: 1 each Documented by: Ranolazine (Ranexa) 1,000 mg PO BID [facility] Stop: 07/22/19 21:01 Last Admin: 01/21/19 08:39 Dose: 1,000 mg Documented by: Simvastatin (Zocor) 20 mg PO HS [facility]; Protocol Stop: 07/22/19 21:01 Last Admin: 01/20/19 21:00 Dose: 20 mg Documented by: - Imaging and Cardiology Echo: report reviewed Cardiac cath: pending - EKG Interpretation EKG results cardiology: personally reviewed Consult Discharge Plan - Plan Instructions: Implantable Cardioverter Defibrillator (DC) Additional Instructions: ACTIVITY: Moderate activity for the next 7 days. No lifting more than 5 pounds (gallon of milk) for 4-6 weeks. Avoid lifting your arm on the same side as the device for 4 weeks. BATHING /SHOWERING: Do not remove the large bandage over the site for 2 days. Do not allow the device to get wet for 7-10 days. You may bathe/shower, but do not use soap and water on the site. When bathing, keep the site dry by covering with Saran wrap or a towel. WOUND CARE: The white steri-strips will start to peel away and come off after 14 days, or your doctor will remove them after [address] into or on top of the incision. Do not use cotton swabs. Do not use any antibiotic ointment or Vitamin E on the site. REMINDERS: You may use electrical devices, such as, microwaves, hair dryers, electric razors, electric blankets, etc. as long as they are in good condition and kept 6-8 inches away from the device. It is recommended to use cell phones on the opposite side of your device. Notify security personnel at the airport that you have a device before you go through airport security screening. When at places with security monitors, such as a grocery store, do not linger near these monitors. It is fine to walk past them in a normal manner. Refer to your owners manual for more specific directions. CARRY YOUR PACEMAKER/ICD CARD WITH YOU AT ALL TIMES Return to work as instructed per physician No driving for 6 months. Keep all scheduled follow up appointments Resume medications as instructed Contact [facility] ( ) if: You develop excessive bleeding from insertion or wound site not controlled by applying pressure You develop a fever greater than 101 degrees Fahrenheit Your incision becomes reddened at or around the site Your incision develops yellowish or greenish drainage or development of white pimple-like bumps You experience excessive pain You develop swelling in your ankles You experience muscle switching You develop excessive hiccupping If you experience chest pain, shortness of breath, dizziness, or extreme tiredness, stop the activity and rest. Please notify [facility] office if you experience any of these symptoms and they are not relieved by rest please call 911! Referrals: may gibson [Other] - 01/30/19 8:45 am Jet Orantes MD [Partnered Physician] - (Office will call you for your follow up appointment) Prescriptions: Amiodarone HCl 400 mg PO DAILY #30 tablet Aspirin [Lo-Dose Aspirin EC] 81 mg PO DAILY #30 tablet. LORazepam [Lorazepam] 2 mg PO DAILY PRN 10 Days #10 tablet PRN Reason: Anxiety <Jet Orantes - Last Filed: 01/23/19 15:43> Date of Encounter: 01/23/19 - Attending Attestation I have personally performed a face to face evaluation on this patient. I have r eviewed and agree with the care plan. 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 Recommend ICD. Assessment and Plan Discussion w patient/family: The assessment and plan as outlined above was discussed with the patient and/or family members who expressed understanding and agreement. All questions were answered. Thank you for involving us in the care of your patient. Please call with any questions. History of Present Illness History of present illness: Mr. Henson is a 58 year old male All Systems Review: The remainder of the systems were reviewed and are negative Results 01/21/19 02:28 01/23/19 04:03 Lab Results 01/23/19 04:03 Sodium 136 Potassium 4.2 Chloride 100 Carbon Dioxide 27 BUN 17 Creatinine 0.95
[2019-01-21] MEDS ORDERED: Verapamil 5 MG/2 ML VIAL ONE (12:39)
[2019-01-21] MEDS ORDERED: *HR* Midazolam HCl 2 MG/2 ML VIAL ONE (12:43)
[2019-01-21] MEDS ORDERED: *HR* FentaNYL (PF) 100 MCG/2 ML VIAL ONE (12:43)
--- NOTE | 2019-01-21 13:01 | Pre-Sedation Evaluation ---
Pre-sedation evaluation - Pre-sedation checklist Date of procedure: 01/21/19 Procedure: [facility] Recent Vitals: Last Vital Signs Temp 97.8 F 01/21/19 11:31 Pulse 54 01/21/19 11:31 Resp 17 01/21/19 11:31 BP 100/54 01/21/19 11:31 Pulse Ox 96 01/21/19 11:31 H&P (including ROS) documented in medical record: Yes Previous reaction to sedatives/anesthetics: No Dietary Status: NPO after Midnight Airway Assessment: Patient can open mouth completely, TMJ function normal ASA Classification *see protocol: CLASS II-Mild systemic disease Plan of Care: Pt appropriate candidate for procedure/moderate/conscious sedation, Risks/benefits of procedure/sedation discussed w/ patient/family Cardiac Registry (Cardio Only) - Functional Capacity Functional Capacity: >=4 METS with symptoms - Clincal Frailty Scale Clinical Frailty Scale: Managing Well
[2019-01-21] MEDS ORDERED: *HR* Atropine Sulfate 1 MG/10 ML SYRINGE ONE (13:04)
[2019-01-21] MEDS ORDERED: Nitroglycerin Spray 4.9 GM BOTTLE ONE (13:10)
--- NOTE | 2019-01-21 14:01 | Invasive Diagnostic Lab Proc ---
Name: Adan Henson Date of Study: 01/21/2019 Date: 1960 Ht: 68.9in Medical Record#: [id number] Age: 58 Wt: 262.35lb Gender: Male BSA: 2.32 Order #: [id number] BMI: 38.86 Physicians Procedure Physician: Randy Goodman MD, FACC Referring MD: Referring MD: Staff Name Position Time In Vitor Lim RN Monitor 12:50 PM Weston Schwartz RN Milk Powder Grinder 12:50 PM Isis Dean RT (R) Scrub 12:50 PM Belinda Benitez RT (R) Scrub 12:50 PM Valdez Shaw RN Milk Powder Grinder 12:51 PM Indications Indication Non-Stemi Procedures Performed Procedure L HRT ARTERY/VENTRICLE ANGIO Pre-Procedure Checklist Informed consent is complete signed and on chart. H&P is on chart. ID band is on and ID verified with patient. Patient NPO for procedure The procedure was described for the patient and questions were answered. ECG is on chart. Plan of Care Patient will tolerate the procedure without complications. Adequate level of comfort will be maintained. Hemodynamics will remain stable Patient will recover from procedure without complications. Respiratory function will be maintained. Cardiac rhythm will remain stable. Patient temperature will be maintained. Patient and/or family have verbalized understanding of the procedure. Patient Education Chief Complaint/Reason for Test: Cardiac Cath Developmental Category: Adult (18-64 years) Developmentally Appropriate for Age: Yes Learning Barriers: None Education Needs: Procedure Education Method: Verbal Information Taught: Cardiac Cath Educational Evaluation: Able to repeat information Intravenous Access Time IV Size Location DC'd Fluid/Drip Rate Units RN 18g 1 1/4" Patent On Arrival Lt Antecubital 0.9NaCl ml/hr 18g 1 1/4" Patent On Arrival Rt Antecubital Allergies Penicillins Vital Signs Time BP (mmHg) HR (bpm) O2 Sat. RR (bpm) LOC 12:51 PM / % 5 = Fully awake and oriented or at pre-proc level 12:51 PM / % 4 = Oriented but drowsy 01:07 PM / % 4 = Oriented but drowsy 01:22 PM / % 4 = Oriented but drowsy 12:49 PM 146 / 80 52 98 % 13 12:53 PM 123 / 76 55 95 % 21 12:58 PM 117 / 71 56 92 % 21 01:03 PM 125 / 75 52 98 % 23 01:08 PM 125 / 72 51 99 % 24 01:13 PM 117 / 68 52 97 % 25 01:18 PM 110 / 67 300 97 % 15 01:22 PM 124 / 71 51 98 % 23 01:29 PM 137 / 55 55 95 % 19 01:33 PM 144 / 72 60 96 % 20 01:38 PM 146 / 67 51 99 % 18 Procedural Medications Time Medication Dose Units Method Given By 12:50 PM Oxygen 2 L/min nasal cannula Weston Schwartz RN 12:51 PM Versed 2 mg Intravenous Weston Schwartz RN 12:51 PM Fentanyl 50 mcg Intravenous Weston Schwartz RN 01:04 PM Lidocaine 2% 0.5 ml Subcutaneous Randy Goodman MD, [facility] 01:10 PM Nitroglycerin 0.4 mcg Sublingual Weston Schwartz RN 01:20 PM Lidocaine 2% 0.5 ml Subcutaneous Randy Goodman MD, FACC 01:23 PM Heparin 4000 units Nitroglycerin 200 mcg Verapamil 2.5 mg Intraarterial Randy Goodman MD, [facility] ASA Classification: CLASS II- Mild systemic disease (i.e. well-controlled diabetes, hypertension, asthma, cigarette smoking) Carri Score Preprocedure Postprocedure Activity 2- Moves 4 extremities sustained head lift Activity 2- Moves 4 extremities sustained head lift Circulation 2- SBP +/= 20 points of pre-anesthetic level Circulation 2- SBP +/= 20 points of pre-anesthetic level Consciousness 2- Awake and alert oriented x 3 Consciousness 2- Awake and alert oriented x 3 O2 Saturation 2- Able to maintain O2 satruation of 92% on room air O2 Saturation 2- Able to maintain O2 satruation of 92% on room air Respiratory 2- Able to deep breathe and cough well Respiratory 2- Able to deep breathe and cough well Total Score 10 Total Score 10 Contrast Agent: Isovue Diagnostic Contrast: 80 ml Total Contrast: 80 ml Fluoro Dose: 32 mGy Procedure Log Time Note Enter By 12:47 PM CathStat 12:47 PM Vitals capture started with the following parameters, Patient=Adult, Interval=5 min, Initial Gxebvxib=500 mmHg, Deflation Rate=3 mmHg, Cuff placed on Right Arm 12:47 PM CathStat 12:47 PM Pt arrived to laborer bituminous paving 2 at 12:47 cedwards 12:47 PM Patient charges- Angio tray pack, Navilyst 3mm J, Pulse Oximetry and ACIST tubing and transducer cedwards 12:48 PM IV Supplies used: J loop Angio Cath. cedwards 12:48 PM Physician arrived 12:48 cedwards 12:48 PM ASA Class CLASS II- Mild systemic disease (i.e. well-controlled diabetes, hypertension, asthma, cigarette smoking) cedwards 12:48 PM Meet and myranda completed cedwards 12:48 PM Sign in performed according to hospital policy. Informed consent was obtained. cedwards 12:48 PM Procedure start 12:48 cedwards 12:48 PM Hair removed from procedure site in procedure lab using clippers. Right wrist and Right groin prepped with Chloraprep by Arlene Moser RT (R), then patient was draped. Skin intact. cedwards 12:49 PM HR=52 bpm, OLST=305/80 mmhg, SpO2=98.0 %, Resp=13 B/min 12:49 PM Recorded ECG: HR=51 Condition=Condition 1 12:50 PM Time: 12:50 Oxygen on at 2 L/min per nasal cannula by Weston Schwartz RN cedwards 12:50 PM Vitor Lim RN Position: Monitor Time in: 12:50 cedwards 12:50 PM Weston Schwartz RN Position: Milk Powder Grinder Time in: 12:50 cedwards 12:50 PM Isis Dean RT (R) Position: Scrub Time in: 12:50 cedwards 12:50 PM Belinda Benitez RT (R) Position: Scrub Time in: 12:50 cedwards 12:51 PM Time: 12:51 Versed 2 mg Intravenous Given by Weston Schwartz RN cedwards 12:51 PM Time: 12:51 Fentanyl 50 mcg Intravenous Given by Weston Schwartz RN cedwards 12:51 PM Time: 12:51 Patient comfortable and pain free: Yes cedwards 12:51 PM Time: 12:51LOC: 5 = Fully awake and oriented or at pre-proc level cedwards 12:53 PM HR=55 bpm, UXEE=754/76 mmhg, SpO2=95.0 %, Resp=21 B/min, EtCO2=46 mmHg, Comment=NSR 12:53 PM Recorded ECG: HR=55 Condition=Condition 1 12:58 PM HR=56 bpm, ARTO=186/71 mmhg, SpO2=92.0 %, Resp=21 B/min 01:03 PM HR=52 bpm, YKQO=763/75 mmhg, SpO2=98.0 %, Resp=23 B/min 01:03 PM Clinical Presentation: Non-STEMI cedwards :03 PM Time out was performed according to hospital policy. Conscious sedation and anesthesia was achieved (see medication log with in this report above) cedwards 01:04 PM Pressure channel 1 zeroed. 01:05 PM Time: 13:04 0.5 ml Lidocaine 2% to right radial Subcutaneous Given by Randy Goodman MD, [facility] cedwards :07 PM Time: 12:51LOC: 4 = Oriented but drowsy cedwards : PM Time: 12:51 Patient comfortable and pain free: Yes cedwards 01:08 PM HR=51 bpm, CJEA=091/72 mmhg, SpO2=99.0 %, Resp=24 B/min, Comment=NSR 01:10 PM Unsuccessful access attempt # 1 into the right Radial artery. Manual pressure applied to achieve hemostasis.. cedwards 01:10 PM Time: 13:10 Nitroglycerin 0.4 mcg Sublingual Given by Weston Schwartz RN c[place] 01:13 PM HR=52 bpm, SOZR=687/68 mmhg, SpO2=97.0 %, Resp=25 B/min, EtCO2=38 mmHg, Comment=NSR 01:14 PM Unsuccessful access attempt # 2 into the right Radial artery. Manual pressure applied to achieve hemostasis.. cedwards 01:16 PM Hair removed from procedure site in procedure lab using clippers. Left wrist prepped with Chloraprep by Weston Schwartz RN, then patient was draped. Skin intact. cedwards 01:18 PM CM=284 bpm, HVNH=440/67 mmhg, SpO2=97.0 %, Resp=15 B/min, Comment=NSR 01:21 PM Time: 13:20 0.5 ml Lidocaine 2% to left radial Subcutaneous Given by Randy Goodman MD, [facility] cedwards :22 PM Time: 13:07 Patient comfortable and pain free: Yes cedwards :22 PM Time: 13:07LOC: 4 = Oriented but drowsy cedwards :22 PM Access obtained by percutaneous puncture. 5/6Fr 11cm Terumo Glidesheath sheath placed in left Radial artery. [id number] cedwards :22 PM HR=51 bpm, KTDZ=864/71 mmhg, SpO2=98.0 %, Resp=23 B/min, EtCO2=36 mmHg, Comment=NSR 01:23 PM Time: 13:23 Patient given 4,000 units Heparin, 200 mcg Nitroglycerin, and 2.5 mg Verapamil Intraarterial by Randy Goodman MD, [facility]. This is given to reduce risk of vessel spasm and thrombosis. cedwards 01:25 PM 0.035 145cm Navilyst 3mmJ wire [id number] cedwards 01:25 PM 5Fr FR 4 catheter inserted over the wire [facility] cedwards : PM Recorded Pressure: Ao, HR=54, Condition=Condition 1 (Aorta) Ao 96/63/79 01:26 PM RCA angiography performed in multiple views. cedwards 01:27 PM Catheter removed ced: PM 5Fr FL 4 catheter inserted over the wire [facility] ced: PM LCA angiography performed in multiple views. cedwards :29 PM HR=55 bpm, TXPX=771/55 mmhg, SpO2=95.0 %, Resp=19 B/min, EtCO2=29 mmHg, Comment=NSR 01:31 PM Recorded Pressure: Ao, HR=52, Condition=Condition 1 (Aorta) Ao 96/64/80 01:33 PM Catheter removed ced:33 PM 5Fr Pigtail catheter inserted over the wire [facility] cedwards :33 PM Catheter crossed the aortic valve and was selectively placed in the left ventricle. Pressures recorded on pullback for left heart catheterization. cedwards :33 PM HR=60 bpm, ZMHS=426/72 mmhg, SpO2=96.0 %, Resp=20 B/min 01:35 PM Bolus angiogram of left Ventricle complete: 12 ml/sec for a total of 35 mls cedwards :35 PM Recorded Pressure: LV, HR=59, Condition=Condition 1 (Left Ventricle) LV 120/0/15 01:36 PM Recorded Pressure: LV, Ao, HR=60, Condition=Condition 1 (Left Ventricle) LV 110/2/18, (Aorta) Ao 104/37/76 01:37 PM Time: 13:22LOC: 4 = Oriented but drowsy cedwards :37 PM Time: 13:22 Patient comfortable and pain free: Yes cedwards :37 PM Catheter removed ced 01:38 PM Procedure completed at 13:38 01/21/2019 cedwards 01:38 PM Did you address FILOMENA flow and Dominance? YesCoronary Dominance: right cedwards 01:38 PM HR=51 bpm, CYHK=133/67 mmhg, SpO2=99 %, Resp=18 B/min 01:39 PM Sign out completed: Radiation Dose 230.8 mGy, 32.4 Gy/cm2 Fluoro Time: 2.3 Isovue 370 - 200ml contrast 80 ml given by Randy Goodman MD, [facility]. Complications: None. The patient was discharged out of the laborer bituminous paving in stable condition. Sedation minutes 20. Cardiac Rehab Consult needed: No. Confirmed administered medications: Yes cedwards 01:39 PM Isovue 370 - 200ml,1 Bottle(s) used. cedwards 01:40 PM Arterial sheath pulled, Vasc Band closure device used and was Successful S/N. cedwards 01:40 PM 10 ml air in Vasc Band. cedwards 01:40 PM Estimated Blood Loss: minimal cedwards 01:40 PM Post ECG NSR cedwards 01:40 PM Post Blood Pressure 146/67 cedwards 01:40 PM Information taught Cardiac Cath and Vasc Band cedwards 01:40 PM Education needs Procedure, Plan of Care, and Disease Process cedwards 01:40 PM Learning barriers :None cedwards 01:40 PM Education Methods Verbal cedwards 01:40 PM Education evaluation Able to repeat information cedwards 01:41 PM Site status No bleeding/ No Hematoma - Lt Wrist as reported by Belinda Benitez RT (R) at 13:40 cedwards 01:41 PM Plavix, Effient or Brilinta given No cedwards 01:41 PM Family placed in consult room. cedwards 01:42 PM Complications: None cedwards 01:43 PM Lesion found in Mid RCA. Pre Stenosis: 50 Pre FILOMENA Flow: cedwards 01:44 PM Lesion found in Proximal Circumflex. Pre Stenosis: 40 Pre FILOMENA Flow: cedwards 01:44 PM Lesion found in 1st Marginal. Pre Stenosis: 30 Pre FILOMENA Flow: cedwards 01:44 PM Lesion found in Right PDA. Pre Stenosis: 30 Pre FILOMENA Flow: cedwards 01:46 PM 13:46 Post Pulses Bilateral DP 2+ cedwards 01:46 PM 13:46 Post Pulses Bilateral PT 2+ cedwards 01:49 PM Report given to Edilma MCKEON Pt taken to 2N Room #4. 13:49 cedwards Complications Complication None None Hemodynamics Pressures Site Systolic/A Wave Diastolic/V Wave Mean AO 96 63 79 AO 96 64 80 LV 120 0 15 LV 110 2 18 AO 104 37 76 Post Procedure Information Blood Pressure: 146/67 mmHg Rhythm: NSR Post procedural instructions were given Closure Device Time Device Success/Fail 01/21/2019 1:50:00 PM Mechanical Compression Successful Site Checks Time Location Status Staff Sheath In? Note 01:40 PM Lt Wrist No bleeding/ No Hematoma Belinda Benitez RT (R) Pulses Time Site Pre-Procedure Post-Procedure Note Bilateral DP & PT 2+ 2+ Bilateral radial 2+ 2+ 1:46:00 PM Bilateral DP 2+ 1:46:00 PM Bilateral PT 2+ Updated by Vitor Lim RN on 01/21/2019 1:52:56 PM electronically signed on 01/21/2019 1:53:42 PM with status of Final
[2019-01-21] MEDS: Aspirin Enteric Coated 81 MG Tablet PO SCH (15:18)
--- NOTE | 2019-01-21 16:05 | Electrocardiograph Report ---
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
[2019-01-22] MEDS: Insulin LISPRO 300 UNITS/3 ML VIAL SQ SCH ×4 (01:05→17:36)
[2019-01-22 02:20] LABS: BUN/Creatinine Ratio 17 (6-26); Blood Urea Nitrogen 17 mg/dL (8-23); Calcium 8.6 mg/dL (8.6-10.3); Carbon Dioxide 28 mEq/L (23-29); Chloride 100 mEq/L (98-107); Glucose 235 mg/dL (70-105); Osmolality,Calculated 289 (280-300); Potassium 4.1 mEq/L (3.5-5.1); Sodium 135 mEq/L (136-145); eGFR For African Americans > 60 (> 60); eGFR For Non-African Americans > 60 (> 60)
[2019-01-22] MEDS: Amiodarone Premix 360 MG/200 ML BAG IVC SCH (05:26)
[2019-01-22] MEDS: Budesonide/Formoterol 160/4.5 1 PUFF INH IH SCH ×2 (07:51→19:37)
[2019-01-22] MEDS: Ranolazine 500 MG TAB.ER.12H PO SCH ×2 (08:05→20:18)
[2019-01-22] MEDS: Metoprolol XL (24 HR) Succ 50 MG TAB.ER.24H PO SCH (08:05)
[2019-01-22] MEDS: Aspirin Enteric Coated 81 MG Tablet PO SCH (08:05)
[2019-01-22] MEDS: *HR* OxyCODONE/APAP 5/325 TABLET PO SCH ×3 (08:06→20:19)
[2019-01-22] MEDS: Isosorbide MONOnitrate (24 HR) 30 MG TAB.ER.24H PO SCH (08:07)
--- NOTE | 2019-01-22 08:36 | Internal Med Progress Note ---
<Bijan Hoyos - Last Filed: 01/22/19 13:08> Hospitalist Progress Note - Encounter Date of Encounter: 01/22/19 - Exam Vitals: Temp Pulse Resp BP Pulse Ox 98.2 F 54 18 100/66 97 01/22/19 11:41 01/22/19 11:41 01/22/19 11:41 01/22/19 11:41 01/22/19 11:41 - Assessment and Plan (1) V-tach Current Visit: Yes Status: Acute (2) Hypertension Current Visit: Yes Status: Acute (3) Chronic coronary artery disease Current Visit: Yes Status: Acute (4) Hyperlipidemia Current Visit: Yes Status: Acute (5) DVT prophylaxis Current Visit: Yes Status: Acute (6) NSTEMI (non-ST elevated myocardial infarction) Current Visit: Yes Status: Acute - Time Spent with Patient Total time spent is greater than 50% in coordination of care (as documented) at patient's floor/unit and/or counseling patient: Internal Medicine: Result - Labs CBC & Chem 7: 01/21/19 02:28 01/22/19 01:42 Labs: BMP 01/22/19 01:42 Sodium 135 L Potassium 4.1 Chloride 100 Carbon Dioxide 28 BUN 17 Creatinine 1.02 Glucose 235 H Calcium 8.6 Cardiac Enzymes 01/22/19 Range/Units 11:40 Troponin I 0.24 H* (< 0.04) ng/mL - ABG Interpretation ABG results: PT/INR, D-dimer PT 12.5 Seconds (9.4-12.1) H 01/21/19 02:28 Consult Discharge Plan - Plan Instructions: Implantable Cardioverter Defibrillator (DC) Referrals: may gibson [Other] - 01/30/19 8:45 am - Attending Attestation I examined this patient and my medical decision-making was reviewed with the Resident Physician on 01/22/19. I agree with the documented findings, disposition and treatment plan as described except to the extent set forth below. Mr Henson is currently admitted for VT. He is to have debrillator today. He remain moderate to high risk due to potential for worsening clinical status. Mr Henson is awaiting procedure. No fever or chills. No CP or SOB. Some anxiety. Heart latosha and regular. No wheeze. Probable d/c tomorrow after procedure and cardiology clearance. <Monk,Bryon G - Last Filed: 01/22/19 21:10> Hospitalist Progress Note - Encounter Date of Encounter: 01/22/19 Time of Encounter: 10:00 - Exam Vitals: Temp Pulse Resp BP Pulse Ox 98.0 F 52 16 133/84 95 01/22/19 07:25 01/22/19 07:25 01/22/19 07:51 01/22/19 07:25 01/22/19 07:51 Exam: PE general: middle-aged male no acute distress skin: no clubbing eyes: PERRL ENT: no lesions of hard palate neck: no thyromegaly or lymphadenopathy cardio: distant. only heard tricuspid. RRR. No carotid bruits. cap. refill <2 seconds upper ext. lungs: CTA throughout anteriorly GI: nontender. no ad bruits but complicated by obesity. extremities: no edema present - Summary of Assessment and Plan Summary of Assessment and Plan: HPI: patient presented to ED on 01/20/19 with crushing chest pain that began while sitting in motel. PMH COPD, diabetes, HTN, CAD s/p NH 2001 with stent and apixaban. pain constant and worsened that radiated to both sides of jaw. nitrates did not seem to help pain. admits: dyspnea, nausea no vomiting. diaphoresis, weakness. urgent care sent him to ER after giving ASA. PMH: as above PSH: syringomyelia or something similar. patient had trouble describing. sinus surgery. rotator cuff surgery. carpal tunnel surgery b/l. Meds: confirmed home meds with some confusion on patient's part 2/2 not having list with them All: penicillin - hives SH: former smoker, former etoh use. FH: extensive cardiac history throughout family ROS general: denies weight loss, fever, night sweats skin: denies new skin lesions, rash eyes: denies trouble seeing ENT: denies trouble hearing, epistaxis, trouble swallowing cardio: chest pain as above respiratory:dyspnea as above GI: denies abd. pain, d, c, hematochezia; nausea as above G/U: denies pain/trouble urinating, hematuria MSK: denies new arthralgia/myalgia neuro: denies dizziness, syncope psych: depressed. no suicidal/homicidal ideation Course: CXR showed no acute process. CTA showed no PE. Echo 01/21/19 showed LVEF 50% with diastolic dysfunction. patient had episode of recurring shortness of breath and chest pain for which we ordered EKG, troponins. blood pressure dropped but quickly recovered. troponins were still trending downwards. EKG showed loss of T waves. cardiology following. appreciate their recommendations. Decided to go ahead with defibrillator placment today. VTach -likely 2/2 structural heart changes -received one shock in ED after sedation that converted patient. -cont. amio for rhythm control -defibrillator placement today NSTEMI -crushing chest pain rad to jaw, diaphoresis, -troponins 0.07>0.35>0.85>0.63 -cont BB, statin per cardiology CAD -s/p NH with stent 2001 -NSTEMI as above HTN -chronic -continue home imdur, lisin-HCTZ, metoprolol Hyperlipidemia -chronic -continue statin History of afib -resolved. diabetes -cont. SSI GERD -cont. omeprazole nausea -cont prn ondansetron - Time Spent with Patient Total time spent is greater than 50% in coordination of care (as documented) at patient's floor/unit and/or counseling patient: Internal Medicine: Result - Labs CBC & Chem 7: 01/21/19 02:28 01/22/19 01:42 Labs: BMP 01/22/19 01:42 Sodium 135 L Potassium 4.1 Chloride 100 Carbon Dioxide 28 BUN 17 Creatinine 1.02 Glucose 235 H Calcium 8.6 - ABG Interpretation ABG results: PT/INR, D-dimer PT 12.5 Seconds (9.4-12.1) H 01/21/19 02:28 - Impressions Impressions Echocardiogram 01/21/19 14:35 Impressions: LVEF 50%. Moderate left ventricular diastolic dysfunction. Normal right ventricular structure and function. Mild mitral regurgitation. No pulmonary hypertension. Left Ventricular Wall Motion: Rest Echo Findings All wall segments showed normal motion. Findings: Study Quality * Technically adequate exam. ECG Findings * Sinus bradycardia. Left Ventricle * LVEF 50%. * LV chamber size and wall thickness measurements are normal. * Moderate left ventricular diastolic dysfunction. Right Ventricle * Normal right ventricular structure and function. Left Atrium * Moderately dilated left atrium. Right Atrium * Normal right atrial size. Aortic Valve * No aortic regurgitation. * Aortic valve not well visualized. * No aortic stenosis. Mitral Valve * Normal mitral valve structure. * No mitral stenosis. * Mild mitral regurgitation. Tricuspid Valve * Tricuspid valve not well visualized. * Estimated RA pressure is 3 mmHg. Pulmonic Valve * Pulmonic valve is not well visualized. * No pulmonic stenosis. * No pulmonic regurgitation. Pulmonary Artery * Pulmonary artery not well visualized. Aorta * Normally sized aortic root. Pericardium * There is no pericardial effusion present. Interatrial Septum * No evidence of PFO by color Doppler. IVC * Normal IVC dimensions and inspiratory collapse. <Bijan Hoyos - Last Filed: 01/22/19 13:08> (2) Hypertension Qualifiers: Qualified Code(s): I10 - Essential (primary) hypertension
[2019-01-22] MEDS ORDERED: Clindamycin 900 MG/50 ML 900 MG/50 ML IV.SOLN IVPB ONE (09:55)
[2019-01-22] MEDS ORDERED: Oxymetazoline Nasal SPRAY BOTTLE NS PRN (09:55)
--- NOTE | 2019-01-22 13:23 | Event Note ---
Date of Encounter: 01/22/19 Time of Encounter: 13:22 - Cardiology Event Note ICD insertion today for VT. Paged for episode of chest pain. Per pt, had an anxiety attack. Pain free currently. Discussed with Dr. Jet Orantes. After ICD insertion, will transition to PO Amiodarone 400mg BID while inpt, then decrease to 400mg daily at d/c. Continue to follow.
--- NOTE | 2019-01-22 13:29 | Electrocardiograph Report ---
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
[2019-01-22] MEDS ORDERED: *HR* Midazolam HCl 2 MG/2 ML VIAL ONE ×2 (15:46→16:14)
[2019-01-22] MEDS ORDERED: *HR* FentaNYL (PF) 100 MCG/2 ML VIAL ONE (15:46)
[2019-01-22] MEDS ORDERED: 0.9 % Sodium Chloride 500 ML ONE ×3 (15:47→16:01)
[2019-01-22] MEDS ORDERED: Clindamycin 600 MG/50 ML 600 MG/50 ML IV.SOLN IVPB ONE (15:57)
--- NOTE | 2019-01-22 15:57 | Pre-Sedation Evaluation ---
Pre-sedation evaluation - Pre-sedation checklist Date of procedure: 01/22/19 Procedure: AICD placement Recent Vitals: Last Vital Signs Temp 98.2 F 01/22/19 11:41 Pulse 54 01/22/19 11:41 Resp 18 01/22/19 11:41 BP 100/66 01/22/19 11:41 Pulse Ox 97 01/22/19 11:41 H&P (including ROS) documented in medical record: Yes Previous reaction to sedatives/anesthetics: No Dietary Status: NPO after Midnight Airway Assessment: Patient can open mouth completely, TMJ function normal, Micrognathia (under-bite, receding chin) absent Dentition: No loose teeth or bridges, full dentition Possible difficult airway: No ASA Classification *see protocol: CLASS II-Mild systemic disease Plan of Care: Pt appropriate candidate for procedure/moderate/conscious sedation, Risks/benefits of procedure/sedation discussed w/ patient/family
[2019-01-22] MEDS: *HR* Amiodarone 200 MG TABLET PO SCH (20:19)
[2019-01-22] MEDS ORDERED: Insulin LISPRO 300 UNITS/3 ML VIAL SQ SCH (21:00)
[2019-01-23 05:26] LABS: BUN/Creatinine Ratio 18 (6-26); Blood Urea Nitrogen 17 mg/dL (8-23); Carbon Dioxide 27 mEq/L (23-29); Chloride 100 mEq/L (98-107); Potassium 4.2 mEq/L (3.5-5.1); Sodium 136 mEq/L (136-145); eGFR For African Americans > 60 (> 60); eGFR For Non-African Americans > 60 (> 60)
[2019-01-23] MEDS: Isosorbide MONOnitrate (24 HR) 30 MG TAB.ER.24H PO SCH (07:29)
[2019-01-23] MEDS: Insulin LISPRO 300 UNITS/3 ML VIAL SQ SCH ×2 (07:29→11:38)
[2019-01-23] MEDS: *HR* Amiodarone 200 MG TABLET PO SCH (07:30)
[2019-01-23] MEDS: *HR* OxyCODONE/APAP 5/325 TABLET PO SCH (07:30)
[2019-01-23] MEDS: Aspirin Enteric Coated 81 MG Tablet PO SCH (07:30)
[2019-01-23] MEDS: Ranolazine 500 MG TAB.ER.12H PO SCH (07:30)
[2019-01-23] MEDS: Metoprolol XL (24 HR) Succ 50 MG TAB.ER.24H PO SCH (07:31)
[2019-01-23] MEDS: Budesonide/Formoterol 160/4.5 1 PUFF INH IH SCH (07:36)
--- NOTE | 2019-01-23 08:49 | Internal Med Progress Note ---
Hospitalist Progress Note - Encounter Date of Encounter: 01/23/19 - Exam Vitals: Temp Pulse Resp BP Pulse Ox 98.1 F 62 18 136/86 96 01/23/19 07:21 01/23/19 07:38 01/23/19 07:33 01/23/19 07:21 01/23/19 07:33 - Time Spent with Patient Total time spent is greater than 50% in coordination of care (as documented) at patient's floor/unit and/or counseling patient: Internal Medicine: Result - Labs CBC & Chem 7: 01/21/19 02:28 01/23/19 04:03 Labs: BMP 01/23/19 04:03 Sodium 136 Potassium 4.2 Chloride 100 Carbon Dioxide 27 BUN 17 Creatinine 0.95 Cardiac Enzymes 01/22/19 Range/Units 11:40 Troponin I 0.24 H* (< 0.04) ng/mL - ABG Interpretation ABG results: PT/INR, D-dimer PT 12.5 Seconds (9.4-12.1) H 01/21/19 02:28 - Impressions Impressions Chest X-Ray 01/22/19 17:06 IMPRESSION: Status post placement of an AICD device. No pneumothorax seen. D/ / 01/22/2019 17:30:22 Eriberto Pratt MD / [email or web address] Interpreting Provider: Eriberto Pratt MD Chest X-Ray 01/23/19 06:00 IMPRESSION: Stable positioning of cardiac AICD. No pneumothorax. D/ / Susana Antonio MD / Susana Antonio MD Interpreting Provider: Susana Antonio MD Consult Discharge Plan - Plan Instructions: Implantable Cardioverter Defibrillator (DC) Referrals: may gibson [Other] - 01/30/19 8:45 am Jet Orantes MD [Partnered Physician] - (Office will call you for your follow up appointment)
[2019-01-23] MEDS ORDERED: *HR* LORazepam 1 MG TABLET PO ONE (10:51)
[2019-01-23 11:18] VITALS: BP 111/77
--- NOTE | 2019-01-23 11:44 | Electrophysiology ProgressNote ---
Date of Encounter: 01/23/19 Time of Encounter: 11:00 Assessment and Plan (1) V-tach Current Visit: Yes Status: Acute Per EP: -Patient presented with ACS symptoms; peak troponin 0.84 -ECG upon arrival demonstrated monomorphic VT, was given 150 mg Amiodarone bolus in ED, became unstable and was then defibrillated x1 to NSR. -Patient reports chest pain symptoms resolved after defibrillation. -Reports similar presentation in 2001, MS at that time with subsequent stent. -K 5.1 upon presentation, Mg 2.0, TSH normal. -TTE 01/21/19: LVEF 50%, moderate LVDD, normal RV structure and function, mild MR, no PH, normal wall motion. -C with moderate CAD, no intervention. -Patient is s/p ICD yesterday. Device check normal. Chest x-ray post device and this am without evidence of pneumothorax. -Post device education reviewed with patient and . Recommend no driving for 6 months, per Dr.John Orantes. -On amio 400mg BID. -Will decrease amio to 400mg daily. -EP/Cardiology will sign off. Recommend close outpatient follow up with primary lan/wan engineer. (2) NSTEMI (non-ST elevated myocardial infarction) Current Visit: Yes Status: Acute Per EP: -See VT as above. Discussion w patient/family: The assessment and plan as outlined above was discussed with the patient and/or family members who expressed understanding and agreement. All questions were a nswered. Thank you for involving us in the care of your patient. Please call with any questions. Discussed and reviewed with Dr.John Orantes Subjective Principal diagnosis: VT Interval history: Patient denies complaints today. States he feels well and is anxious to go home. Objective Vital Signs, Last 4 Hours Temp Pulse Resp BP Pulse Ox 01/23/19 11:16 98.1 F 60 18 111/77 96 General: Conversant, No Apparent Distress HEENT: Atraumatic, Normocephaly, Mucus Membranes Moist Neck: No JVD, Normal carotid pulses Cardiac: Reg Rate and Rhythm, Normal S1 and S2, No Murmur Lungs: Normal Breath Sounds, No Wheeze, Rales, Rhonchi Neuro: Alert and responsive, No focal deficits noted Abdomen: Soft, Non-Tender Skin: No rashes noted on visualized skin Musculoskeletal: No Chest Wall Tenderness, Other (Left chest wall steri-strips clean, dry, intact. ) Extremities: No Clubbing, No Cyanosis, No Edema, Normal Pulses Results 01/21/19 02:28 01/23/19 04:03 Lab Results Impressions Chest X-Ray 01/22/19 17:06 IMPRESSION: Status post placement of an AICD device. No pneumothorax seen. D/ / 01/22/2019 17:30:22 Eriberto Pratt MD / [email or web address] Interpreting Provider: Eriberto Pratt MD Chest X-Ray 01/23/19 06:00 IMPRESSION: Stable positioning of cardiac AICD. No pneumothorax. D/ / Susana Antonio MD / Susana Antonio MD Interpreting Provider: Susana Antonio MD Active Medications Acetaminophen (Tylenol) 650 mg PO Q6HR PRN PRN Reason: Mild Pain/Fever Stop: 07/22/19 14:32 Hydrocodone Bitart/Acetaminophen ([place] 5-325 Mg) 1 tab PO Q6HR PRN PRN Reason: Moderate Pain Stop: 07/22/19 14:32 Last Admin: 01/20/19 19:24 Dose: 1 tab Documented by: Amiodarone HCl (Cordarone) 400 mg PO DAILY [facility] Stop: 07/26/19 09:01 Apixaban (Eliquis) 5 mg PO BID [facility] Stop: 07/22/19 21:01 Last Admin: 01/21/19 08:27 Dose: Not Given Documented by: Aspirin (Aspirin Ec) 81 mg PO DAILY [facility] Stop: 07/23/19 11:01 Last Admin: 01/23/19 07:30 Dose: 81 mg Documented by: Budesonide/Formoterol Fumarate (Symbicort) 2 puff IH BIDR [facility] Stop: 07/22/19 22:01 Last Admin: 01/23/19 07:36 Dose: 2 puff Documented by: Dextrose/Water (Dextrose 50% (Syg)) 25 ml IVP AD PRN PRN Reason: Hypoglycemia Stop: 07/22/19 15:05 Glucagon (Glucagen) 1 mg IM ONCE PRN PRN Reason: Hypoglycemia Stop: 07/22/19 15:05 Glucose (Gluctose) 15 gm PO ONCE PRN PRN Reason: Hypoglycemia Stop: 07/22/19 15:05 Glucose (Gluctose) 30 gm PO ONCE PRN PRN Reason: Hypoglycemia Stop: 07/22/19 15:05 Lisinopril/HCTZ (Prinzide 10-12.5) 1 each PO DAILY [facility] Stop: 07/23/19 09:01 Last Admin: 01/23/19 07:30 Dose: 1 each Documented by: Dextrose (Dextrose 5%) 1,000 mls @ 100 mls/hr IVC .Q10H PRN PRN Reason: HYPOGLYCEMIA Stop: 07/22/19 15:05 Insulin Human Lispro (Humalog) 0 units SQ TIDAC [facility]; Protocol Stop: 07/25/19 07:31 Last Admin: 01/23/19 11:38 Dose: 8 units Documented by: Insulin Human Lispro (Humalog) 0 units SQ HS [facility]; Protocol Stop: 07/24/19 21:01 Last Admin: 01/22/19 20:26 Dose: Not Given Documented by: Isosorbide Mononitrate (Imdur) 30 mg PO DAILY [facility] Stop: 07/23/19 09:01 Last Admin: 01/23/19 07:29 Dose: 30 mg Documented by: Metoprolol Succinate (Toprol Xl) 50 mg PO DAILY [facility] Stop: 07/23/19 09:01 Last Admin: 01/23/19 07:31 Dose: 50 mg Documented by: Naloxone HCl (Narcan) 0.4 mg IVP Q2MPRN PRN PRN Reason: SEE COMMENTS Stop: 07/22/19 14:32 Omeprazole (Prilosec) 40 mg PO BID [facility] Stop: 07/22/19 21:01 Last Admin: 01/23/19 07:30 Dose: 40 mg Documented by: Ondansetron HCl (Zofran) 4 mg IVP Q8HR PRN PRN Reason: Nausea And Vomiting Stop: 07/22/19 14:32 Last Admin: 01/22/19 11:15 Dose: 4 mg Documented by: Oxycodone/Acetaminophen (Percocet 5/325) 1 each PO TID DANIELA Stop: 07/22/19 15:01 Last Admin: 01/23/19 07:30 Dose: 1 each Documented by: Oxymetazoline HCl (Afrin) 1 spray NS Q12HR PRN PRN Reason: Congestion Stop: 07/24/19 09:56 Ranolazine (Ranexa) 1,000 mg PO BID [facility] Stop: 07/22/19 21:01 Last Admin: 01/23/19 07:30 Dose: 1,000 mg Documented by: Simvastatin (Zocor) 20 mg PO HS [facility]; Protocol Stop: 07/22/19 21:01 Last Admin: 01/22/19 20:19 Dose: 20 mg Documented by: - Imaging and Cardiology Chest Xray: report reviewed Echo: report reviewed Cardiac cath: report reviewed - EKG Interpretation EKG results cardiology: other (Telemetry reviewed with average HR previous 12 hours noted to be 61, SR. Intermittent paced rhythm noted.) Consult Discharge Plan - Plan Instructions: Implantable Cardioverter Defibrillator (DC) Additional Instructions: ACTIVITY: Moderate activity for the next 7 days. No lifting more than 5 pounds (gallon of milk) for 4-6 weeks. Avoid lifting your arm on the same side as the device for 4 weeks. BATHING /SHOWERING: Do not remove the large bandage over the site for 2 days. Do not allow the device to get wet for 7-10 days. You may bathe/shower, but do not use soap and water on the site. When bathing, keep the site dry by covering with Saran wrap or a towel. WOUND CARE: The white steri-strips will start to peel away and come off after 14 days, or your doctor will remove them after [address] anything into or on top of the incision. Do not use cotton swabs. Do not use any antibiotic ointment or Vitamin E on the site. REMINDERS: You may use electrical devices, such as, microwaves, hair dryers, electric razors, electric blankets, etc. as long as they are in good condition and kept 6-8 inches away from the device. It is recommended to use cell phones on the opposite side of your device. Notify security personnel at the airport that you have a device before you go through airport security screening. When at places with security monitors, such as a grocery store, do not linger near these monitors. It is fine to walk past them in a normal manner. Refer to your owners manual for more specific directions. CARRY YOUR PACEMAKER/ICD CARD WITH YOU AT ALL TIMES Return to work as instructed per physician No driving for 6 months. Keep all scheduled follow up appointments Resume medications as instructed Contact [facility] ( ) if: You develop excessive bleeding from insertion or wound site not controlled by applying pressure You develop a fever greater than 101 degrees Fahrenheit Your incision becomes reddened at or around the site Your incision develops yellowish or greenish drainage or development of white pimple-like bumps You experience excessive pain You develop swelling in your ankles You experience muscle switching You develop excessive hiccupping If you experience chest pain, shortness of breath, dizziness, or extreme tiredness, stop the activity and rest. Please notify [facility] office if you experience any of these symptoms and they are not relieved by rest please call 911! Referrals: may gibson [Other] - 01/30/19 8:45 am Jet Orantes MD [Partnered Physician] - (Office will call you for your follow up appointment) Prescriptions: Amiodarone HCl 400 mg PO DAILY #30 tablet Aspirin [Lo-Dose Aspirin EC] 81 mg PO DAILY #30 tablet.dr Orozco [Lorazepam] 2 mg PO DAILY PRN 10 Days #10 tablet PRN Reason: Anxiety
--- NOTE | 2019-01-23 11:46 | Discharge Summary ---
- NOTES TO OUTPATIENT PROVIDER Notes to Outpatient Provider: Cardiology placed defibrillator after bout of VTach and NSTEMI. Patient advised not to drive for the next 6 months. amio decreased to 400 mg daily Orders not resulted at time of discharge: Pending orders 01/21/19 04:00 Urinalysis reflex Microscopic [URIN] AM 0400 01/21/19 10:56 CL Cardiac Catheterization [CL] Routine 01/22/19 09:55 CL Insert ICD [CL] Routine 01/22/19 11:22 EKG [ECG 12 lead ECG] [ECG] Stat Date of Encounter: 01/23/19 Time of Encounter: 08:45 - Discharge Diagnosis (1) V-tach Status: Acute Assessment and Plan: likely 2/2 structural heart changes -received one shock in ED after sedation that converted patient. -cont. amio for rhythm control. decreased to 400 mg daily per cardiology. -defibrillator placement successful (2) NSTEMI (non-ST elevated myocardial infarction) Status: Acute Assessment and Plan: -crushing chest pain rad to jaw, diaphoresis, -troponins 0.07>0.35>0.85>0.63 -cont BB, statin per cardiology. (3) Chronic coronary artery disease Status: Acute Assessment and Plan: -s/p MA with stent 2001 -NSTEMI as above (4) Hyperlipidemia Status: Acute Assessment and Plan: -chronic -continue statin Qualifiers: Qualified Code(s): E78.5 - Hyperlipidemia, unspecified (5) Hypertension Status: Acute Assessment and Plan: chronic -continue home imdur, lisin-HCTZ, metoprolol Qualifiers: Qualified Code(s): I10 - Essential (primary) hypertension (6) Diabetes 1.5, managed as type 2 Status: Acute Hospital course: Mr. Henson is a 58 year old male patient presented to ED on 01/20/19 with crushing chest pain that began while sitting in motel. PMH COPD, diabetes, HTN, CAD s/p MA 2001 with stent and apixaban. pain constant and worsened that radiated to both sides of jaw. patient found in VTach, was given 150 of Amio in ED, then subsequently sedated and defibrillated once to normal sinus rhythm. CXR showed no acute process. CTA showed no PE. Echo showed LVEF 50% with d iastolic dysfunction. Cardiology placed defibrillator successfully. patient placed on amiodaron 400 bid and 81mg ASA in addition to home meds. Patient was stable and in good condition for discharge Discharge discussed with: patient - Time Spent with Patient Total time spent providing and/or coordinating discharge services: - Discharge Medications Prescriptions: New Aspirin [Lo-Dose Aspirin EC] 81 mg PO DAILY #30 tablet. LORazepam [Lorazepam] 2 mg PO DAILY PRN 10 Days #10 tablet PRN Reason: Anxiety Amiodarone HCl 400 mg PO DAILY #30 tablet Continued Oxycodone HCl/Acetaminophen [Percocet 5-325 mg Tablet] 1 each PO TID metFORMIN [Glucophage] 500 mg PO BIDWM Ranolazine [Ranexa] 1,000 mg PO BID Lisinopril-HCTZ 10-12.5 [Prinzide 10-12.5] 1 each PO DAILY Simvastatin [Zocor] 20 mg PO HS Metoprolol Succinate [Toprol Xl] 50 mg PO DAILY Esomeprazole Magnesium [Nexium] 40 mg PO BID Apixaban [Eliquis] 5 mg PO BID Exenatide Microspheres [Bydureon Pen] 2 mg SQ GU Isosorbide MONOnitrate [Isosorbide Mononitrate] 20 mg PO DAILY Mometasone/Formoterol [Dulera 200 Mcg/5 Mcg Inhaler] 2 puff IH BID Home Medications: Apixaban [Eliquis] 5 mg PO BID 01/20/19 [History] Esomeprazole Magnesium [Nexium] 40 mg PO BID 01/20/19 [History] Exenatide Microspheres [Bydureon Pen] 2 mg SQ GU 01/20/19 [History] Isosorbide MONOnitrate [Isosorbide Mononitrate] 20 mg PO DAILY 01/20/19 [History] Lisinopril-HCTZ 10-12.5 [Prinzide 10-12.5] 1 each PO DAILY 01/20/19 [History] Metoprolol Succinate [Toprol Xl] 50 mg PO DAILY 01/20/19 [History] Mometasone/Formoterol [Dulera 200 Mcg/5 Mcg Inhaler] 2 puff IH BID 01/20/19 [His tory] Oxycodone HCl/Acetaminophen [Percocet 5-325 mg Tablet] 1 each PO TID 01/20/19 [History] Ranolazine [Ranexa] 1,000 mg PO BID 01/20/19 [History] Simvastatin [Zocor] 20 mg PO HS 01/20/19 [History] metFORMIN [Glucophage] 500 mg PO BIDWM 01/20/19 [History] Amiodarone HCl 400 mg PO DAILY #30 tablet 01/23/19 [Rx] Aspirin [Lo-Dose Aspirin EC] 81 mg PO DAILY #30 tablet. 01/23/19 [Rx] LORazepam [Lorazepam] 2 mg PO DAILY PRN 10 Days #10 tablet 01/23/19 [Rx] Allergies/Adverse Reactions: Allergy/AdvReac Type Severity Reaction Status Date / Time Penicillins AdvReac Rash Verified 01/20/19 12:10 Date of admission: 01/20/19 12:53 Primary care physician: may gibson Consults: 01/20/19 12:15 Consult to Cardiology [CONS] Stat Comment: Consulting Provider: Cardiology Asmita Reason for Consult: vtach Call Completed: Yes 01/21/19 10:56 Consult to Electrophysiology (EP) [CONS] Routine Consulting Provider: Electrophysiology Asmita Reason for Consult: VT Call Completed: Yes - Constitutional Vitals: Temp Pulse Resp BP Pulse Ox 98.1 F 60 18 111/77 96 01/23/19 11:16 01/23/19 11:16 01/23/19 11:16 01/23/19 11:16 01/23/19 11:16 General appearance: Present: A&O X 3 Exam: PE general: middle-aged male no acute distress skin: dry lower ext. eyes: PERRL ENT: moist oral mucosa no lesions neck: no thyromegaly or lymphadenopathy cardio: RRR no murmur gallop rub. cap. refill <2 seconds upper ext. dorsalis pedis 2+ lower ext. b/l. lungs: CTA throughout GI: nontender. no ad bruits but complicated by obesity. extremities: no edema present - Patient Status Disposition: Home, Self-Care Condition: Fair - Discharge Instructions Instructions: Implantable Cardioverter Defibrillator (DC) Follow Up With: may gibson [Other] - 01/30/19 8:45 am Jet Orantes MD [Partnered Physician] - (Office will call you for your follow up appointment) Additional Instructions: ACTIVITY: Moderate activity for the next 7 days. No lifting more than 5 pounds (gallon of milk) for 4-6 weeks. Avoid lifting your arm on the same side as the device for 4 weeks. BATHING /SHOWERING: Do not remove the large bandage over the site for 2 days. Do not allow the device to get wet for 7-10 days. You may bathe/shower, but do not use soap and water on the site. When bathing, keep the site dry by covering with Saran wrap or a towel. WOUND CARE: The white steri-strips will start to peel away and come off after 14 days, or your doctor will remove them after [address] anything into or on top of the incision. Do not use cotton swabs. Do not use any antibiotic ointment or Vitamin E on the site. REMINDERS: You may use electrical devices, such as, microwaves, hair dryers, electric razors, electric blankets, etc. as long as they are in good condition and kept 6-8 inches away from the device. It is recommended to use cell phones on the opposite side of your device. Notify security personnel at the airport that you have a device before you go through airport security screening. When at places with security monitors, such as a grocery store, do not linger near these monitors. It is fine to walk past them in a normal manner. Refer to your owners manual for more specific directions. CARRY YOUR PACEMAKER/ICD CARD WITH YOU AT ALL TIMES Return to work as instructed per physician No driving for 6 months. Keep all scheduled follow up appointments Resume medications as instructed Contact [facility] ( ) if: You develop excessive bleeding from insertion or wound site not controlled by applying pressure You develop a fever greater than 101 degrees Fahrenheit Your incision becomes reddened at or around the site Your incision develops yellowish or greenish drainage or development of white pimple-like bumps You experience excessive pain You develop swelling in your ankles You experience muscle switching You develop excessive hiccupping If you experience chest pain, shortness of breath, dizziness, or extreme tiredness, stop the activity and rest. Please notify [facility] office if you experience any of these symptoms and they are not relieved by rest please call 911! - Diet and Activity Activity: increase activity as tolerated
--- NOTE | 2019-01-23 19:16 | Event Note ---
Date of Encounter: 01/23/19 Time of Encounter: 08:30 I examined this patient and my medical decision-making was reviewed with the Resident Physician on 01/23/19. I agree with the documented findings, disposition and treatment plan as described except to the extent set forth below. Mr Henson was hospitalized for acute V tach. He was cardioverted in ED. He underwent LHC and was neg for ischemia. AICD placed yesterday. Today he feels well and is ready for discharge. Exam Alert Comfortable Mucus membranes dry Heart reg No wheeze Plan D/c home today D/C time 28min
[2019-01-24] MEDS ORDERED: *HR* Amiodarone 200 MG TABLET PO SCH (09:00)
--- NOTE | 2019-01-25 16:00 | Electrocardiograph Report ---
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
== END 2019-01-23 13:01 | disposition home or self-care (01) | DRG 224 ==
LOC: EMEROOARM 11:26 → SUATTDRO 12:53 → 2NNU 12:53
PROVIDERS: ADMIT Internal Medicine Nephrology; ATTEND Internal Medicine